=== PATIENT | female | born 1965 | race Two or more races ===

== ENCOUNTER 2021-10-12 19:01 | Inpatient (IN) | payer MEDICARE, OTHER ==
[~2021-10-12] VITALS: Ht 154.9 cm; Wt 73.5 kg
--- NOTE | 2021-10-12 19:21 | NUR ---
PT AOX4. [facility] C/O CP X2 DAYS. NO ACUTE DISTRESS NOTED. RR EVEN AND UNLABORED. PLACED ON LAPPING MACHINE OPERATOR AND PULSE OX. AT BEDSIDE FOR EVAL. AWAITING ORDERS.
[2021-10-12 19:54] LABS: BASOPHILS # (AUTO) 0.1 K/uL (0.0-0.2); BASOPHILS % (AUTO) 0.8 % (0.0-2.0); EOSINOPHILS % (AUTO) 2.3 % (0.0-6.0); HEMATOCRIT 22 % (33-45); LYMPHOCYTES # (AUTO) 1.7 K/uL (0.8-4.8); LYMPHOCYTES % (AUTO) 13.2 % (20.0-44.0); MEAN CORPUSCULAR HGB CONC 31 g/dl (31.0-36.0); MEAN CORPUSCULAR VOLUME 93 fL (82-100); MONOCYTES # (AUTO) 0.8 K/uL (0.1-1.30); MONOCYTES % (AUTO) 5.8 % (2.0-12.0); NEUTROPHILS # (AUTO) 10.2 K/uL (1.8-8.9); NEUTROPHILS % (AUTO) 77.9 % (43.0-81.0); PLATELET COUNT (AUTO) 385 K/uL (150-450); RED BLOOD CELL COUNT(AUTO) 2.37 MIL/uL (4.0-5.2); WHITE BLOOD COUNT (AUTO) 13.1 K/uL (4.3-11.0)
[2021-10-12 19:57] LABS: CALCIUM, SERUM 8.1 mg/dL (8.5-10.1); CARBON DIOXIDE 19 mmol/L (21-32); CHLORIDE 103 mmol/L (98-107); CREATININE 5.7 mg/dL (0.6-1.3); GLUCOSE 118 mg/dL (74-106); UREA NITROGEN, BLOOD 58 mg/dL (7-18)
[2021-10-12 19:58] LABS: HEMOGLOBIN 6.8 g/dL (11.5-14.8)
[2021-10-12] MEDS ORDERED: MORPHINE SULFATE INJ 2 MG/ML DISP.SYRIN IV ONE (20:00)
[2021-10-12 20:01] LABS: SODIUM SERUM 137 mmol/L (136-145)
[2021-10-12] MEDS ORDERED: MORPHINE SULFATE INJ 2 MG/ML DISP.SYRIN ONE (20:01)
[2021-10-12 20:05] LABS: POTASSIUM 6.3 mmol/L (3.5-5.1)
[2021-10-12 21:01] LABS: BAND % (MANUAL) 1 % (0.0-5.0); LYMPHOCYTES % (MANUAL) 15 % (16-48); MONOCYTES % (MANUAL) 4 % (0-11.0); NEUTROPHILS % (MANUAL) 78 (42-76)
[2021-10-12 21:02] LABS: EOSINOPHILS % (MANUAL) 2 % (0-4)
[2021-10-12] MEDS ORDERED: DOCUSATE SODIUM 100 MG CAPSULE PO PRN (21:30)
[2021-10-12] MEDS ORDERED: INSULIN REGULAR, HUMAN 100 UNIT/ML 10 ML VIAL IV ONE (21:30)
[2021-10-12] MEDS ORDERED: DEXTROSE 50%-WATER 50 ML DISP.SYRIN IVP ONE (21:30)
[2021-10-12] MEDS ORDERED: MAG HYDROX/AL HYDROX/SIMETH 30 ML UDC PO PRN (21:30)
--- NOTE | 2021-10-12 21:32 | NUR ---
PT RESTING COMFORTABLY. NO ACUTE DISTRESS NOTED. AWARE OF PLAN OF CARE.
--- NOTE | 2021-10-12 21:44 | NUR ---
BLOOD CONSENT SIGNED BY PT. AWARE OF PLAN OF CARE.
--- NOTE | 2021-10-12 22:07 | NUR ---
REPORT GIVEN TO RN FOR JESUS. PT TRANSFERED PER ACLS PROTOCOL
--- NOTE | 2021-10-12 22:15 | NUR ---
MRSA SWAB COLLECTED AND SENT TO LAB. PATIENT'S BELONGINGS LIST DONE.
--- NOTE | 2021-10-12 22:25 | NUR ---
2225 ADMITTED FROM ER 56 YEAR OLD FEMALE VIA [facility] WITH DX OF CHEST PAIN. PATIENT IS AWAKE AND VERBALLY RESPONSIVE. NO C/O CHEST PAIN WHEN ASKED. TRANSFERRED TO BED AND CONNECTED TO LEVEL VIAL INSPECTOR. NSR ON THE MONITOR. ON O2 AT 3 LITER PER REPORT. SKIN ASSESSMENT AND ADMISSION CARE RENDERED. NOTED WITH COLOSTOMY ON RIGHT UPPER QUADRANT. SMALL AMOUNT OF SEMI FORMED STOOL NOTED. UMBILICAL DRESSING REMOVED AND ASSESSED AREA, PER PATIENT SITE IS WITH LEAKING . CLEANSED AREA WITH NS AND CLEAN DRESSING APPLIED. RIGHT CHEST WALL HD CATH WITH INTACT DRESSING. LEFT AV FISTULA NOTED. KEPT CLEAN AND DRY. CALL LIGHT PLACED WITHIN REACH AND INSTRUCTED TO CALL FOR ASSISTANCE.
--- NOTE | 2021-10-12 22:26 | NUR ---
PT TRANSPORTED TO ROOM 117 ON MANAGER MEDICAL PER ACLS
[2021-10-12 22:30] VITALS: BP 122/47
[2021-10-12] MEDS: SIMVASTATIN 20 MG TABLET PO SCH (23:13)
[2021-10-13] VITALS (8 sets, daily range): BP systolic 132–155; BP diastolic 50–65
[2021-10-13] MEDS ORDERED: FUROSEMIDE 40 MG/4 ML VIAL IV ONE
[2021-10-13] MEDS: MORPHINE SULFATE INJ 2 MG/ML DISP.SYRIN IV PRN ×5 (00:07→20:20)
[2021-10-13] MEDS: methylPREDNISolone SOD SUCC 40 MG/ML VIAL IV SCH ×3 (01:46→21:37)
[2021-10-13] MEDS: ALBUTEROL FS 2.5 MG/0.5 ML VIAL.NEB NEB SCH ×5 (03:11→20:08)
[2021-10-13] MEDS: IPRATROPIUM NEB FS 0.5 MG/2.5 ML AMPUL.NEB NEB SCH ×5 (03:11→20:07)
--- NOTE | 2021-10-13 07:30 | NUR ---
RN OPENING NOTE RECEIVED PATIENT SLEEPING IN BED. BREATHING EVEN AND UNLABORED. PATIENT ON 3LPM O2 VIA NC NO S/S OF DISTRESS OR SOB NOTED. ON TELE MONITORING READING SINUS RHYTHM, HR: 85 NOTED WITH CHAI MIDLINE AND RIGHT AC #18G , INTACT AND PATENT. RUQ COLOSTOMY BAG INTACT. ALL SAFETY MEASURES IMPLEMENTED: HOB ELEVATED, CALL LIGHT WITHIN REACH, SIDE RAILS UP X 2, BED LOCKED IN LOWEST POSITION, BED ALARM ON. WILL CONTINUE TO MONITOR AND ASSESS FOR ANY CHANGES DURING SHIFT.
--- NOTE | 2021-10-13 07:47 | NUR ---
MBA INTERNS[employer]IP CLOSING NOTE PATIENT SLEEPING IN BED, ALERT/ORIENTED X 4, PT ABLE TO MAKE NEEDS KNOWN. PT STABLE ON 3 LPM OF OXYGEN VIA NASAL CANNULA, NO S/S OF DISTRESS OR SOB NOTED, BREATHING EVEN AND UNLABORED. PT ON TELE MONITORING READING SINUS RHYTHM, HR: 77. CHAI MIDLINE AND RIGHT AC #18G IV ACCESS INTACT AND SALINE LOCKED. PATIENT RECEIVED 1 UNIT OF PRBC THIS SHIFT. MEDICATIONS GIVEN ORDERED, PT NEEDS MET THROUGHOUT SHIFT. RUQ COLOSTOMY BAG INTACT. SAFETY MEASURES IN PLACE: CALL LIGHT WITHIN REACH, SIDE RAILS UP X 2, BED LOCKED IN LOWEST POSITION, BED ALARM ON. ENDORSED TO DAY SHIFT NURSE FOR CONTINUITY OF CARE
[2021-10-13] MEDS ORDERED: MULT-447 PO (07:59)
[2021-10-13] MEDS ORDERED: SEVE0.8P3 PO (07:59)
[2021-10-13] MEDS ORDERED: MELA5TAB PO (07:59)
[2021-10-13] MEDS ORDERED: HYDR-4076 PO (07:59)
[2021-10-13] MEDS ORDERED: DOCU-141 PO (07:59)
[2021-10-13] MEDS ORDERED: NALO0.4D4 IV (07:59)
[2021-10-13] MEDS ORDERED: FLUC100T PO (07:59)
[2021-10-13] MEDS ORDERED: INSU100V7 SQ (07:59)
[2021-10-13] MEDS ORDERED: FERR325T23 PO (07:59)
[2021-10-13] MEDS ORDERED: PANT40TA2 PO (07:59)
[2021-10-13] MEDS ORDERED: AMLO-213 PO (07:59)
[2021-10-13] MEDS ORDERED: CRAN3875 PO (07:59)
[2021-10-13] MEDS ORDERED: DICL100G34 TP (07:59)
[2021-10-13] MEDS ORDERED: ACET-2605 PO ×2 (07:59)
[2021-10-13] MEDS ORDERED: CRAN425C6 PO (07:59)
[2021-10-13] MEDS ORDERED: ZINC50TA69 PO (07:59)
[2021-10-13] MEDS ORDERED: LACT1CAP71 PO (07:59)
[2021-10-13] MEDS ORDERED: MAGN400O6 PO (07:59)
[2021-10-13] MEDS ORDERED: INSU100V42 SQ ×2 (07:59)
[2021-10-13] MEDS ORDERED: AMIN30LI2 PO (07:59)
[2021-10-13] MEDS ORDERED: ASPI-1420 PO (07:59)
[2021-10-13] MEDS ORDERED: INSU100I45 SQ (07:59)
[2021-10-13] MEDS ORDERED: LINA5TAB PO (07:59)
[2021-10-13] MEDS ORDERED: HYDR4TAB57 PO (07:59)
[2021-10-13] MEDS ORDERED: CALC1TAB30 PO (07:59)
[2021-10-13] MEDS ORDERED: NITR0.4T48 SL (07:59)
[2021-10-13] MEDS ORDERED: ASCO-352 PO (07:59)
[2021-10-13] MEDS ORDERED: HEPA50007 SQ (07:59)
[2021-10-13] MEDS ORDERED: ONDA4TAB5 PO (07:59)
[2021-10-13] MEDS ORDERED: METO25TA20 PO (07:59)
[2021-10-13] MEDS ORDERED: ATOR40TA PO (07:59)
[2021-10-13] MEDS ORDERED: PRED2.5T PO (07:59)
[2021-10-13] MEDS ORDERED: GLUC1KIT IM (07:59)
[2021-10-13] MEDS ORDERED: HYDR-4303 PO (07:59)
[2021-10-13] MEDS ORDERED: FOLI0.8T2 PO (07:59)
[2021-10-13] MEDS: ASPIRIN 81 MG TAB.CHEW PO SCH (08:33)
[2021-10-13 09:23] LABS: BASOPHILS % (AUTO) 0.3 % (0.0-2.0); HEMATOCRIT 26 % (33-45); HEMOGLOBIN 8.2 g/dL (11.5-14.8); LYMPHOCYTES # (AUTO) 0.2 K/uL (0.8-4.8); LYMPHOCYTES % (AUTO) 1.7 % (20.0-44.0); MEAN CORPUSCULAR HGB CONC 31 g/dl (31.0-36.0); MEAN CORPUSCULAR VOLUME 89 fL (82-100); MONOCYTES # (AUTO) 0.6 K/uL (0.1-1.30); MONOCYTES % (AUTO) 5.2 % (2.0-12.0); NEUTROPHILS # (AUTO) 10.9 K/uL (1.8-8.9); NEUTROPHILS % (AUTO) 92.8 % (43.0-81.0); PLATELET COUNT (AUTO) 428 K/uL (150-450); RED BLOOD CELL COUNT(AUTO) 2.96 MIL/uL (4.0-5.2); WHITE BLOOD COUNT (AUTO) 11.7 K/uL (4.3-11.0)
[2021-10-13 09:49] LABS: BILIRUBIN,TOTAL 0.7 mg/dL (0.2-1.0); CALCIUM, SERUM 8.5 mg/dL (8.5-10.1); CREATININE 6.5 mg/dL (0.6-1.3); MAGNESIUM 2.2 mg/dL (1.8-2.4); TOTAL PROTEIN, SERUM 7.6 g/dL (6.4-8.2)
[2021-10-13 10:10] LABS: PHOSPHORUS 8.8 mg/dL (2.5-4.9); POTASSIUM 7.6 mmol/L (3.5-5.1)
[2021-10-13] MEDS ORDERED: SEVELAMER CARBONATE 800 MG TABLET PO SCH (11:00)
[2021-10-13 11:46] LABS: THYROID STIMULATING HORMONE 0.739 uIU/mL (0.358-3.74)
[2021-10-13] MEDS ORDERED: ALTEPLASE CATHFLO 2 MG/VIAL IV ONE (12:00)
[2021-10-13] MEDS: ACETAMINOPHEN 325 MG TABLET PO PRN (13:07)
[2021-10-13] MEDS: SEVELAMER CARBONATE 800 MG POWD.PACK PO SCH ×2 (13:08→17:24)
[2021-10-13] MEDS ORDERED: HEPARIN-LOCK FLUSH PORCINE PF 100 UNITS/1 ML (10 ML)DISP.SYRIN IVF SCH (14:00)
[2021-10-13] MEDS ORDERED: hydrALAZINE HCL IV 20 MG VIAL IV PRN (16:00)
[2021-10-13 17:39] LABS: LYMPHOCYTES % (MANUAL) 2 % (16-48); NEUTROPHILS % (MANUAL) 95 (42-76)
[2021-10-13 17:40] LABS: MONOCYTES % (MANUAL) 3 % (0-11.0)
--- NOTE | 2021-10-13 18:58 | NUR ---
RN CLOSING NOTE NO SIGNIFICANT CHANGES THROUGHOUT SHIFT, PATIENT REMAINS IN STABLE CONDITION. PATIENT IS AWAKE, ALERT/ORIENTED X4, ABLE TO MAKE NEEDS KNOWN. BREATHING EVEN AND UNLABORED. PATIENT ON 3LPM O2 VIA NC NO S/S OF DISTRESS OR SOB NOTED. NOTED WITH CHAI MIDLINE AND RIGHT AC #18G , INTACT AND PATENT, FLUSHED WELL WITH NO SIGNS OF INFILTRATION. . RUQ COLOSTOMY BAG INTACT. ALL DUE MEDS GIVEN ORDERED. ALL NEEDS ANTICIPATED. KEPT PATIENT CLEAN DRY AND COMFORTABLE. ALL SAFETY MEASURES IMPLEMENTED: HOB ELEVATED, CALL LIGHT WITHIN REACH, SIDE RAILS UP X 2, BED LOCKED IN LOWEST POSITION, BED ALARM ON. WILL ENDORSE TO ONCOMING NURSE FOR CONTINUITY OF CARE.
--- NOTE | 2021-10-13 20:30 | NUR ---
cellar pumper Opening Note Pt received in bed awake, A&O x4, calm, cooperative. Pt on 3L NC O2sat 97%; no s/s of resp distress, no complaint of chest pain or SOB at the moment, non-labored breathing; appears comfortable. Pt attached to external monitor; ST with HR 101. Colostomy appears pink and moist. CHAI midline and RAC 18G are intact and patent; no s/s of infiltration, flushes well. Bed in lowest position, call light within reach, side rails up x3. Will monitor throughout the night.
--- NOTE | 2021-10-13 20:37 | NUR ---
RN Note Pt reports of 9/10 pain on right knee that's described as "it's breaking in half". Pt given Morphine 2 mg PRN for severe pain. Will reassess pt's pain in 30 minutes and monitor for its effectiveness.
[2021-10-13] MEDS: SIMVASTATIN 20 MG TABLET PO SCH (21:37)
--- NOTE | 2021-10-13 21:56 | NUR ---
RN Note Received critical from lab. Pt is gram positive cocci in clusters. Cinthya INGRAM notified and ordered vancomycin [id number]. Order obtained and carried out.
[2021-10-14] VITALS: BP 123/41
[2021-10-14] MEDS ORDERED: VANCOMYCIN 1 GM in IV D5W 250ml IV ONE (00:30)
[2021-10-14] MEDS: MORPHINE SULFATE INJ 2 MG/ML DISP.SYRIN IV PRN ×6 (01:10→23:36)
--- NOTE | 2021-10-14 01:10 | NUR ---
RN Note Pt complains of 9/10 pain on right knee that's described as sharp. Pt requests for pain med. Pt given Morphine 2 mg IV PRN q4h severe pain. Will reassess for effectiveness.
[2021-10-14] MEDS ORDERED: VANCOMYCIN 1 GM VIAL ONE (01:19)
[2021-10-14 04:00] VITALS: BP 151/52
--- NOTE | 2021-10-14 05:57 | NUR ---
RN Note Pt complains of 9/10 pain on right knee that's described as sharp. Pt requests for pain med. Pt given morphine 2 mg IV PRN. Pt states her pain gets as low as a 4/10 when morphine is given. Will reassess for effectiveness.
--- NOTE | 2021-10-14 05:59 | NUR ---
facility security officer Closing Note Pt in bed awake, A&O x4; pt reports of not being able to sleep much at night. Continues to be on 3L NC, O2sat ranged from 94%-98% throughout the night. Pt attached to external monitor, sinus tachycardia later in the night with HR as high as 103 and SR towards the end of shift with HR 87. Pt has had no complaint of SOB or chest pain throughout the night; non-labored breathing, no s/s of resp distress. Vanco infused throughout the night at 250 ml/hr. CHAI midline and RAC IV intact and patent, no s/s of infiltration. Bed in lowest position, call light within reach, side rails up x3. Will endorse to dayshift nurse to continue care.
--- NOTE | 2021-10-14 07:25 | NUR ---
RN OPENING NOTE RECEIVED PATIENT AWAKE. PATIENT IS ALERT/ORIENTED X 4, ABLE TO MAKE NEEDS KNOWN. BREATHING EVEN AND UNLABORED. PATIENT ON 3LPM O2 VIA NC NO S/S OF DISTRESS OR SOB NOTED. PATIENT DENIES ANY CHEST PAIN/DISCOMFORT AT THE TIME. ON TELE MONITORING READING SINUS RHYTHM WITH HR OF 87. NOTED WITH CHAI MIDLINE AND RIGHT AC #18G , INTACT AND PATENT. RUQ COLOSTOMY BAG INTACT. ALL SAFETY MEASURES IMPLEMENTED: HOB ELEVATED, CALL LIGHT WITHIN REACH, SIDE RAILS UP X 2, BED LOCKED IN LOWEST POSITION, BED ALARM ON. WILL CONTINUE TO MONITOR AND ASSESS FOR ANY CHANGES DURING SHIFT.
[2021-10-14 08:00] VITALS: BP 139/46
[2021-10-14] MEDS ORDERED: VANCOMYCIN 500 MG in IV D5W 100 ML IV PRN (08:00)
[2021-10-14] MEDS: SEVELAMER CARBONATE 800 MG POWD.PACK PO SCH ×3 (08:14→17:14)
[2021-10-14] MEDS: ASPIRIN 81 MG TAB.CHEW PO SCH (08:15)
[2021-10-14] MEDS: methylPREDNISolone SOD SUCC 40 MG/ML VIAL IV SCH (08:15)
[2021-10-14] MEDS: IPRATROPIUM NEB FS 0.5 MG/2.5 ML AMPUL.NEB NEB SCH ×4 (09:08→20:18)
[2021-10-14] MEDS: ALBUTEROL FS 2.5 MG/0.5 ML VIAL.NEB NEB SCH ×4 (09:09→20:18)
[2021-10-14 10:02] LABS: BASOPHILS # (AUTO) 0.1 K/uL (0.0-0.2); BASOPHILS % (AUTO) 0.6 % (0.0-2.0); EOSINOPHILS % (AUTO) 0.3 % (0.0-6.0); HEMATOCRIT 24 % (33-45); HEMOGLOBIN 7.8 g/dL (11.5-14.8); LYMPHOCYTES # (AUTO) 1.8 K/uL (0.8-4.8); LYMPHOCYTES % (AUTO) 18.2 % (20.0-44.0); MEAN CORPUSCULAR HGB CONC 33 g/dl (31.0-36.0); MEAN CORPUSCULAR VOLUME 87 fL (82-100); MONOCYTES # (AUTO) 0.6 K/uL (0.1-1.30); MONOCYTES % (AUTO) 6.6 % (2.0-12.0); NEUTROPHILS # (AUTO) 7.2 K/uL (1.8-8.9); NEUTROPHILS % (AUTO) 74.3 % (43.0-81.0); PLATELET COUNT (AUTO) 405 K/uL (150-450); RED BLOOD CELL COUNT(AUTO) 2.73 MIL/uL (4.0-5.2); WHITE BLOOD COUNT (AUTO) 9.7 K/uL (4.3-11.0)
[2021-10-14 10:42] LABS: CALCIUM, SERUM 7.9 mg/dL (8.5-10.1); CREATININE 4.3 mg/dL (0.6-1.3); POTASSIUM 4.4 mmol/L (3.5-5.1)
[2021-10-14 12:00] VITALS: BP 137/44
[2021-10-14] MEDS ORDERED: SEVELAMER CARBONATE 800 MG TABLET PO SCH (13:00)
[2021-10-14 14:54] LABS: MAGNESIUM 2.3 mg/dL (1.8-2.4)
[2021-10-14 16:00] VITALS: BP 130/41
[2021-10-14] MEDS: SOD FERRIC GLUC 125 MG in IV NS 0.9% 100 ML IV SCH (16:03)
--- NOTE | 2021-10-14 17:10 | NUR ---
RN NOTE ACCU-CHECK DONE, BLOOD SUGAR RESULT WAS 520 MG/DL. DR. MORA MADE AWARE, WITH ORDER TO GIVE 15 UNITS OF REGULAR INSULIN SQ, ORDERS NOTED AND CARRIED OUT. PATIENT IS AWAKE, ALERT/ORIENTED X 3 AND VERBALLY RESPONSIVE, ASYMPTOMATIC FOR HYPERGLYCEMIA. ALL NEEDS ANTICIPATED.
[2021-10-14] MEDS ORDERED: *INSULIN REGULAR(HUMULIN R)HUM 100 UNIT/ML VIAL SQ PRN (17:30)
[2021-10-14] MEDS ORDERED: INSULIN REGULAR, HUMAN 100 UNIT/ML 3 ML VIAL SQ PRN (17:30)
[2021-10-14] MEDS ORDERED: DEXTROSE 50%-WATER 50 ML DISP.SYRIN IV PRN (17:30)
[2021-10-14] MEDS ORDERED: BLOOD SUGAR DIAGNOSTIC 1 EACH STRIP IN SCH (17:30)
[2021-10-14] MEDS ORDERED: DICLOFENAC TOPICAL 100 GM GEL..GM. TP PRN (17:30)
[2021-10-14] MEDS ORDERED: NITROGLYCERIN 0.4 MG/TAB BOTTLE SL PRN (17:30)
[2021-10-14] MEDS: INSULIN REGULAR, HUMAN 100 UNIT/ML 3 ML VIAL SQ PRN ×2 (17:42→18:12)
[2021-10-14] MEDS ORDERED: SEVELAMER CARBONATE 800 MG POWD.PACK PO SCH (18:00)
[2021-10-14] MEDS ORDERED: INSULIN ASPART 12 UNIT SQ SCH (18:00)
--- NOTE | 2021-10-14 18:07 | NUR ---
ADDENDUM PATIENT RANDOM GLUCOSE PER LAB 610 ANOTHER 15 UNITS GIVEN IN ADDITION TO 15 UNITS EARLY DOSE, ORDERED.PT. AWAKE ALERT,DENEIS ANY PAIN MD AWARE.
[2021-10-14] MEDS: BLOOD SUGAR DIAGNOSTIC 1 EACH STRIP VI SCH ×2 (18:12→22:00)
--- NOTE | 2021-10-14 19:10 | NUR ---
RN CLOSING NOTE PATIENT REMAINS IN STABLE CONDITION THROUGHOUT SHIFT. PATIENT IN BED RESTING. PATIENT IS ALERT/ORIENTED X 4, ABLE TO MAKE NEEDS KNOWN. BREATHING EVEN AND UNLABORED. PATIENT ON 3LPM O2 VIA NC NO S/S OF DISTRESS OR SOB NOTED. NOTED WITH CHAI MIDLINE AND RIGHT AC #18G , INTACT AND PATENT. RUQ COLOSTOMY BAG INTACT. ALL DUE MEDS GIVEN ORDERED. KEPT PATIENT CLEAN DRY AND COMFORTABLE. ALL NEEDS ANTICIPATED. ALL SAFETY MEASURES IMPLEMENTED: HOB ELEVATED, CALL LIGHT WITHIN REACH, SIDE RAILS UP X 2, BED LOCKED IN LOWEST POSITION, BED ALARM ON. WILL ENDORSE TO ONCOMING NURSE FOR CONTINUITY OF CARE.
--- NOTE | 2021-10-14 19:30 | NUR ---
RN OPENING NOTE RECEIVED CARE OF PATIENT WHILE PATIENT IN BED, A/O X4, ABLE TO MAKE NEEDS KNOWN. PATIENT EXPRESSES PAIN 10/10, MORPHINE PRN Q4H GIVEN BY AM NURSE, WILL CONTINUE TO ASSESS PAIN LEVEL. PATIENT ON 3LPM O2 VIA NC NO S/S OF DISTRESS OR SOB NOTED. NOTED WITH CHAI MIDLINE AND RIGHT AC #18G , INTACT AND PATENT. RUQ COLOSTOMY BAG INTACT. ALL SAFETY MEASURES IMPLEMENTED: HOB ELEVATED, CALL LIGHT WITHIN REACH, SIDE RAILS UP X 2, BED LOCKED IN LOWEST POSITION, BED ALARM ON. WILL CONTINUE TO MONITOR.
[2021-10-14 20:00] VITALS: BP 141/66
--- NOTE | 2021-10-14 20:18 | NUR ---
RT PT RECVD AWAKE AND VERBAL ON 2 LPM NC, TX GIVEN AND PT TOLERATING WELL. NO SOB OR RESPIRATORY DISTRESS NOTED AT THIS TIME.
[2021-10-14] MEDS: DOCUSATE SODIUM 100 MG CAPSULE PO SCH (21:22)
[2021-10-14] MEDS: hydrALAZINE HCL 25 MG TABLET PO SCH (21:22)
[2021-10-14] MEDS: SIMVASTATIN 20 MG TABLET PO SCH (21:23)
[2021-10-14] MEDS: ATORVASTATIN 40 MG TABLET PO SCH (21:23)
[2021-10-14] MEDS: HEPARIN SODIUM, PORCINE 5000 UNITS/1 ML VIAL SQ SCH (21:26)
[2021-10-14] MEDS ORDERED: Medication Not On Formulary EA (Melatonin 5 MG) PO SCH (22:00)
[2021-10-14] MEDS: INSULIN GLARGINE, 100 UNIT/ML CARTRIDGE SQ SCH (23:02)
[2021-10-14] MEDS: *INSULIN REGULAR(HUMULIN R)HUM 100 UNIT/ML VIAL SQ PRN (23:04)
[2021-10-15] VITALS: BP 138/57
[2021-10-15 04:00] VITALS: BP 143/68
[2021-10-15] MEDS: MORPHINE SULFATE INJ 2 MG/ML DISP.SYRIN IV PRN ×4 (04:00→20:50)
[2021-10-15] MEDS: hydrALAZINE HCL 25 MG TABLET PO SCH ×3 (05:17→21:24)
--- NOTE | 2021-10-15 06:32 | NUR ---
RN NOTES WILL ENDORSE CARE OF PATIENT TO AM NURSE WHILE PATIENT IN BED, ASLEEP, WAKES UP TO NAME. PATIENT IS A/O X4, ABLE TO MAKE NEEDS KNOWN. PATIENT IN NO DISCOMFORT AT THIS TIME. ALL PATIENT NEEDS MET THROUGHOUT SHIFT. ALL DUE MEDS GIVEN. NO SIGNIFICANT FINDINGS UPON ALL NURSING ASSESSMENTS. ALL SAFETY PRECAUTIONS IMPLEMENTED PER HOSPITAL PROTOCOLS. WILL ENDORSE TO AM NURSE FOR CONTINUITY OF CARE.
[2021-10-15 06:40] LABS: BASOPHILS % (AUTO) 0.3 % (0.0-2.0); EOSINOPHILS % (AUTO) 0.3 % (0.0-6.0); HEMATOCRIT 23 % (33-45); HEMOGLOBIN 7.4 g/dL (11.5-14.8); LYMPHOCYTES # (AUTO) 1.6 K/uL (0.8-4.8); LYMPHOCYTES % (AUTO) 14.4 % (20.0-44.0); MEAN CORPUSCULAR HGB CONC 32 g/dl (31.0-36.0); MEAN CORPUSCULAR VOLUME 86 fL (82-100); MONOCYTES # (AUTO) 0.9 K/uL (0.1-1.30); MONOCYTES % (AUTO) 7.7 % (2.0-12.0); NEUTROPHILS # (AUTO) 8.8 K/uL (1.8-8.9); NEUTROPHILS % (AUTO) 77.3 % (43.0-81.0); PLATELET COUNT (AUTO) 383 K/uL (150-450); WHITE BLOOD COUNT (AUTO) 11.3 K/uL (4.3-11.0)
[2021-10-15 07:17] LABS: CALCIUM, SERUM 8.2 mg/dL (8.5-10.1); CREATININE 5.3 mg/dL (0.6-1.3); MAGNESIUM 2.2 mg/dL (1.8-2.4); PHOSPHORUS 7.1 mg/dL (2.5-4.9); POTASSIUM 4.6 mmol/L (3.5-5.1)
[2021-10-15] MEDS: PANTOPRAZOLE 40 MG TABLET.DR PO SCH (07:30)
--- NOTE | 2021-10-15 07:30 | NUR ---
RN NOTES RECEIVED PATIENT IN BED, ASLEEP, EASY TO AROUSE, PATIENT A/O X4, ABLE TO MAKE NEEDS KNOWN AND EXPRESS SELF, NO SOB, NO LABORED BREATHING, NO DISCOMFORT AT THIS TIME. I IV MIDLINE INTACT, BRACHIAL IV RIGHT SIDE LEAKING D/C SITE CLEANSED NO SIGNIFCANT BLEEDING NOTED, GAUZE APPLIED NO IRRITATION NO INFECTION NOTED, ALL SAFETY PRECAUTIONS IMPLEMENTED PER HOSPITAL PROTOCOLS WITH BED LOW TO FLOOR, WHEELS LOCKED , CALL LIGHT IN REACH.
[2021-10-15] MEDS: SEVELAMER CARBONATE 800 MG POWD.PACK PO SCH (07:57)
[2021-10-15] MEDS: ASPIRIN 81 MG TAB.CHEW PO SCH (07:58)
[2021-10-15 08:00] VITALS: BP 134/39
[2021-10-15] MEDS: HEPARIN SODIUM, PORCINE 5000 UNITS/1 ML VIAL SQ SCH ×2 (08:04→21:25)
[2021-10-15] MEDS: ALBUTEROL FS 2.5 MG/0.5 ML VIAL.NEB NEB SCH ×4 (08:18→19:30)
[2021-10-15] MEDS: IPRATROPIUM NEB FS 0.5 MG/2.5 ML AMPUL.NEB NEB SCH ×4 (08:18→19:30)
[2021-10-15] MEDS: BLOOD SUGAR DIAGNOSTIC 1 EACH STRIP VI SCH ×4 (08:24→21:54)
[2021-10-15] MEDS: FERROUS SULFATE (325 MG) 325 MG/TAB TABLET PO SCH (08:34)
[2021-10-15] MEDS: ASPIRIN EC 81 MG TABLET.DR PO SCH (08:34)
[2021-10-15] MEDS: METOPROLOL TARTRATE 25 MG TABLET PO SCH ×2 (08:35→19:19)
[2021-10-15] MEDS: LINAGLIPTIN 5 MG TABLET PO SCH (08:35)
[2021-10-15] MEDS: AMLODIPINE BESYLATE 10 MG TABLET PO SCH (08:36)
[2021-10-15] MEDS ORDERED: EPOETIN ALFA (10,000 UNIT) 10,000 UNIT/ML VIAL IV ONE (09:00)
--- NOTE | 2021-10-15 10:00 | NUR ---
MORPHINE GIVEN TO PATIENT, REASSESSED PAIN LEVEL IT WAS AT A 10 ON A SCALE OF 0-10 WHEN GIVEN IT IS AT A 2 AT 1017 AM , REPOSITIONED , DIMMED LIGHTS AND MADE PT FEEL MORE COMFORTABLE BY PROVIDING EDUCTION AND VISUAL BREATHING EXERCISES TO HELP RELIEVE THE PAIN EFFECTIVE THEN STATED PAIN = ZERO AFTER SOME DEEP BREATHING AND VISUALIZATION OF RELAXING THOUGHTS WITH GUIDED MEDITATION. WILL CONTINUE TO MONITOR.
[2021-10-15 12:00] VITALS: BP 139/42
--- NOTE | 2021-10-15 14:18 | NUR ---
RN NOTES PT HAS ORDER FOR CT ANGIO - TODAY, I WAS NOT AWARE THAT THE DIALYSIS NEEDED TO BE AFTER THE CT PROCEDURE WITHIN 24 HOURS OR LESS AND DIALYSIS IS BEING PERFORMED NOW, THEREFORE THE CT IS NOW RESCHEDULED FOR 10/16/21, MD MORA AWARE VIA TEXT MESSAGE, DIALYSIS IS SET UP AND AWARE TO PERFORM DIALYSIS TREATMENT WITHIN 24 HOURS OR LESS FROM TIME OF CT PROCEDURE, WILL RELAY THIS INFO TO ONCOMING RN SUPER VISOR AT END OF SHIFT AND TO ONCOMING TRANSPORTATION DESIGN ENGINEER NURSE WELL, BOTH PROCEDURES ARE SCHEDULED AT THIS TIME AND AWARE OF IMPORTANCE.
[2021-10-15] MEDS: SOD FERRIC GLUC 125 MG in IV NS 0.9% 100 ML IV SCH (14:39)
[2021-10-15] MEDS ORDERED: EPOETIN ALFA-EPBX 10,000 UNIT/ML VIAL IV ONE (15:00)
[2021-10-15 16:00] VITALS: BP 127/53
[2021-10-15] MEDS: SEVELAMER CARBONATE 800 MG TABLET PO SCH ×2 (16:24→19:18)
--- NOTE | 2021-10-15 19:40 | NUR ---
RN NOTES PATIENT HAS COLOSTOMY BAG-IN PLACE, WILL CONTYINUE TO MONITOR
--- NOTE | 2021-10-15 19:40 | NUR ---
RN NOTES RECEIVED PATIENT AWAKE ON BED, A/OX4, SR ON TELE MONITOR, DENIES PAIN AT THIS TIME, BED IN LOCKED POSITION,NO SOB,CALL LIGHT WITHIN REACH, SIDERAILSUPX2, WILL CONTINUE TO MONITOR
--- NOTE | 2021-10-15 19:50 | NUR ---
RN CLOSING NOTES PT BS = 190, COLOSTOMY BAG CHANGED, IV SITE INTACT PATENT FLUSHING NO INFILRATION AND NO IRRITATION NOTED, PT REPOSITIONED FOR COMFORT, THE CT ANGIO WILL BE DONE TOMORROW 10/16/21 AND DIALYSIS AWARE TO PERFORM DIALYSIS WITHIN A 24 HOUR TIME AFTER THE PROCEDURE DIALYSIS TEAM NOTIFIED AND PT IS ON SCHEDULE TO RECEIVE DIALYSIS TOMORROW WITH IN A 24 TIME OR LESS PER ORDERS. ALL NEEDS MET WHEELS LOCKED, BED LOW TO FLOOR, LIGHTS DIM FOR COMFORT CALL LIGHT IN REACH. ENDORSED CT INFORMATION AND DIALYSIS INFO TO ONCOMING SHIFT RN.
[2021-10-15 20:00] VITALS: BP 150/53
--- NOTE | 2021-10-15 20:17 | NUR ---
RT PT REFUSED TX AT THIS TIME. SPO2 99% ON 3 LPM NC. GAVIOTA XIONG INFORMED.
--- NOTE | 2021-10-15 20:54 | NUR ---
RN NOTES COMPLAINED OF SEVERE PAIN ON HER LEGS AND HER ARMS- MORPHINE 2 MG IV GIVEN ORDERED, V/S STABLE
[2021-10-15] MEDS: SIMVASTATIN 20 MG TABLET PO SCH (21:27)
[2021-10-15] MEDS: ATORVASTATIN 40 MG TABLET PO SCH (21:27)
[2021-10-15] MEDS: DOCUSATE SODIUM 100 MG CAPSULE PO SCH (21:27)
[2021-10-15] MEDS: INSULIN GLARGINE, 100 UNIT/ML CARTRIDGE SQ SCH (21:51)
[2021-10-15] MEDS: *INSULIN REGULAR(HUMULIN R)HUM 100 UNIT/ML VIAL SQ PRN (21:52)
[2021-10-16] VITALS: BP 140/41
[2021-10-16] MEDS: MORPHINE SULFATE INJ 2 MG/ML DISP.SYRIN IV PRN ×4 (00:59→16:52)
--- NOTE | 2021-10-16 01:07 | NUR ---
RN NOTES COMPLAIKNED OF TEERIBLE PAIN ON HER KNEES- MORPHINE 2 MG IV GIVEN ORDERED, V/S STABLE
[2021-10-16 04:00] VITALS: BP 135/63
--- NOTE | 2021-10-16 04:52 | NUR ---
RN NOTES complained of bilateral knee pain- morphine 2 mg iv given as ordered, v/s stable
[2021-10-16] MEDS: hydrALAZINE HCL 25 MG TABLET PO SCH ×3 (05:31→22:19)
--- NOTE | 2021-10-16 06:35 | NUR ---
RN NOTES SLEEPING UT AROUSABLE, MORNING CARE RENDERED, DENIES PAIN AT THIS TIME, NO SOB, DALL LIGHT WITHIN REACH, SIDERAILSUPX2, PT. NEEDS ATTENDED
[2021-10-16] MEDS: BLOOD SUGAR DIAGNOSTIC 1 EACH STRIP VI SCH ×4 (07:29→22:24)
[2021-10-16] MEDS: PANTOPRAZOLE 40 MG TABLET.DR PO SCH (07:32)
--- NOTE | 2021-10-16 07:40 | NUR ---
RN NOTE RECEIVE PATIENT IN BED RESTING ALERT ORIENTED X4 VERBALLY RESPONSIVE ON 2L OXYGEN O2:98% SAFETY MEASURE IMPLEMENT BED IN LOW POSITION AND LOCKED CONTINUE TO MONITOR.
[2021-10-16] MEDS: SEVELAMER CARBONATE 800 MG TABLET PO SCH ×3 (07:47→18:06)
[2021-10-16] MEDS: IPRATROPIUM NEB FS 0.5 MG/2.5 ML AMPUL.NEB NEB SCH ×4 (07:56→19:30)
[2021-10-16] MEDS: ALBUTEROL FS 2.5 MG/0.5 ML VIAL.NEB NEB SCH ×4 (07:56→19:30)
[2021-10-16 08:00] VITALS: BP 138/41
[2021-10-16] MEDS: ASPIRIN EC 81 MG TABLET.DR PO SCH (09:00)
[2021-10-16] MEDS: HEPARIN SODIUM, PORCINE 5000 UNITS/1 ML VIAL SQ SCH ×2 (09:00→22:20)
[2021-10-16] MEDS: ASPIRIN 81 MG TAB.CHEW PO SCH (09:00)
[2021-10-16] MEDS: AMLODIPINE BESYLATE 10 MG TABLET PO SCH (09:00)
[2021-10-16] MEDS: LINAGLIPTIN 5 MG TABLET PO SCH (09:00)
[2021-10-16] MEDS: METOPROLOL TARTRATE 25 MG TABLET PO SCH ×2 (09:00→17:15)
[2021-10-16] MEDS: FERROUS SULFATE (325 MG) 325 MG/TAB TABLET PO SCH (09:00)
--- NOTE | 2021-10-16 09:00 | NUR ---
RN NOTE PATIENT WENT TO CT ANGIO AT THIS TIME,HELD ALL MEDS FOR MORNING AT 0900.
[2021-10-16] MEDS: METOPROLOL TARTRATE INJ 5 MG/5 ML AMPUL IVP PRN ×6 (09:17→09:42)
[2021-10-16] MEDS ORDERED: METOPROLOL TARTRATE INJ 5 MG/5 ML AMPUL ONE ×2 (09:22→09:45)
[2021-10-16] MEDS ORDERED: IOHEXOL-350 100 ML VIAL IV ONE ×2 (09:22→10:08)
[2021-10-16] MEDS ORDERED: NITROGLYCERIN 0.4 MG/TAB BOTTLE ONE (09:22)
[2021-10-16] MEDS ORDERED: CT SWABBABLE VALVE TRANS SET 1 EA INFUS.SET MC ONE (09:22)
[2021-10-16] MEDS ORDERED: IV NS 0.9% 250 ML IV ONE (09:22)
[2021-10-16] MEDS ORDERED: NITROGLYCERIN 0.4 MG/TAB BOTTLE SL PRN (09:30)
[2021-10-16] MEDS: NITROGLYCERIN 0.4 MG/TAB BOTTLE SL PRN (09:57)
--- NOTE | 2021-10-16 10:42 | NUR ---
RN NOTE PATIENT RETURN TO HER ROOM AT [address] ANGIO,CONTINUE TO MONITOR
[2021-10-16 12:00] VITALS: BP 148/46
[2021-10-16] MEDS: SOD FERRIC GLUC 125 MG in IV NS 0.9% 100 ML IV SCH (14:27)
[2021-10-16 16:00] VITALS: BP 116/43
[2021-10-16] MEDS: HEPARIN-LOCK FLUSH PORCINE PF 100 UNITS/1 ML (10 ML)DISP.SYRIN IVF PRN (17:01)
--- NOTE | 2021-10-16 19:20 | NUR ---
RN NOTE RECEIVED PATIENT IN BED, AO X 4, IN NO ACUTE DISTRESS AT THIS TIME. RESPIRATIONS UNLABORED, SATURATION AT 95% ON 3L VIA NC, SR ON THE MONITOR, HR IS 90. CHAI MIDLINE PATENT AND FLUSHING WELL, AND PERMACATH AT L UPPER CHEST INTACT, NO S/S OF INFECTION. COLOSTOMY IN PLACE, MINIMAL AMOUNT OF OUTPUT NOTED. SAFETY MEASURES IMPLEMENTED. PATIENT BED ALARM IS ON. HEAD OF BED ELEVATED. BED IS LOCKED, IN LOWEST POSITION AND SIDE RAILS UP. CALL LIGHT WITHIN REACH OF THE PATIENT. WILL CONTINUE TO MONITOR AND REASSESS FOR ANY CHANGES.
--- NOTE | 2021-10-16 19:47 | NUR ---
RN NOTE PATIENT REMAINS ON ALERT ORIENTED X4 VERBALLY RESPONSIVE DIALYSIS DONE 2L OUT,ALL DUE MEDS GIVEN MD ORDERED ENDORSE NEXT COMING SHIFT FOR CONTINUATION OF CARE.
[2021-10-16 20:00] VITALS: BP 145/82
[2021-10-16] MEDS ORDERED: VANCOMYCIN 1 GM in IV D5W 250ml IV ONE (20:00)
--- NOTE | 2021-10-16 20:17 | NUR ---
RT PT REFUSED TX. NO SOB OR RESPIRATORY DISTRESS NOTED AT THIS TIME. GAVIOTA OVIEDO INFORMED.
[2021-10-16] MEDS: ATORVASTATIN 40 MG TABLET PO SCH (22:20)
[2021-10-16] MEDS: DOCUSATE SODIUM 100 MG CAPSULE PO SCH (22:20)
[2021-10-16] MEDS: SIMVASTATIN 20 MG TABLET PO SCH (22:21)
[2021-10-16] MEDS: INSULIN GLARGINE, 100 UNIT/ML CARTRIDGE SQ SCH (22:26)
[2021-10-16] MEDS: *INSULIN REGULAR(HUMULIN R)HUM 100 UNIT/ML VIAL SQ PRN (22:27)
[2021-10-17] VITALS: BP 128/95
[2021-10-17 04:00] VITALS: BP 140/55
[2021-10-17] MEDS: hydrALAZINE HCL 25 MG TABLET PO SCH ×3 (05:06→21:02)
[2021-10-17 06:59] LABS: BASOPHILS % (AUTO) 0.2 % (0.0-2.0); EOSINOPHILS % (AUTO) 2.3 % (0.0-6.0); HEMATOCRIT 24 % (33-45); HEMOGLOBIN 7.8 g/dL (11.5-14.8); LYMPHOCYTES % (AUTO) 22.3 % (20.0-44.0); MEAN CORPUSCULAR HGB CONC 32 g/dl (31.0-36.0); MEAN CORPUSCULAR VOLUME 87 fL (82-100); MONOCYTES % (AUTO) 7.6 % (2.0-12.0); NEUTROPHILS % (AUTO) 67.6 % (43.0-81.0); PLATELET COUNT (AUTO) 373 K/uL (150-450); RED BLOOD CELL COUNT(AUTO) 2.78 MIL/uL (4.0-5.2); WHITE BLOOD COUNT (AUTO) 13.3 K/uL (4.3-11.0)
--- NOTE | 2021-10-17 07:10 | NUR ---
RN NOTE RECEIVED PATIENT IN BED RESTING ALERT ORIENTED X4 VERBALLY RESPONSIVE ON 3L OXYGEN VIA NASAL CANNULA,O2:97% IV SITE IS ON RIGHT UPPER ARM MIDLINE AND LEFT CHEST HD CATH INTACT PATENT SAFETY MEASURE IMPLEMENT,BED IN LOW POSITION AND LOCKED,CALL LIGHT WITHIN REACH CONTINUE TO MONITOR.
[2021-10-17] MEDS: BLOOD SUGAR DIAGNOSTIC 1 EACH STRIP VI SCH ×4 (07:31→21:02)
[2021-10-17] MEDS: SEVELAMER CARBONATE 800 MG TABLET PO SCH ×3 (07:34→17:50)
[2021-10-17] MEDS: PANTOPRAZOLE 40 MG TABLET.DR PO SCH (07:34)
[2021-10-17 07:37] LABS: CREATININE 3.9 mg/dL (0.6-1.3); MAGNESIUM 1.8 mg/dL (1.8-2.4); PHOSPHORUS 3.7 mg/dL (2.5-4.9); POTASSIUM 5.1 mmol/L (3.5-5.1)
[2021-10-17 08:00] VITALS: BP 158/65
[2021-10-17] MEDS: ASPIRIN EC 81 MG TABLET.DR PO SCH (08:06)
[2021-10-17] MEDS: FERROUS SULFATE (325 MG) 325 MG/TAB TABLET PO SCH (08:06)
[2021-10-17] MEDS: ASPIRIN 81 MG TAB.CHEW PO SCH (08:06)
[2021-10-17] MEDS: HEPARIN SODIUM, PORCINE 5000 UNITS/1 ML VIAL SQ SCH ×2 (08:08→21:10)
[2021-10-17] MEDS: IPRATROPIUM NEB FS 0.5 MG/2.5 ML AMPUL.NEB NEB SCH ×4 (08:21→19:30)
[2021-10-17] MEDS: ALBUTEROL FS 2.5 MG/0.5 ML VIAL.NEB NEB SCH ×4 (08:21→19:30)
[2021-10-17] MEDS: MORPHINE SULFATE INJ 2 MG/ML DISP.SYRIN IV PRN ×4 (08:30→21:52)
[2021-10-17] MEDS: METOPROLOL TARTRATE 25 MG TABLET PO SCH ×3 (08:30→17:51)
[2021-10-17] MEDS: AMLODIPINE BESYLATE 10 MG TABLET PO SCH (08:36)
[2021-10-17] MEDS: LINAGLIPTIN 5 MG TABLET PO SCH (08:37)
--- NOTE | 2021-10-17 09:00 | NUR ---
RN NOTE TRADJENDA 5MG HELD DUE TO BLOOD SUGAR IS 66 CONTINUE TO MONITOR.
--- NOTE | 2021-10-17 09:00 | NUR ---
RN NOTE HELP BLOOD PRESSURE MEDS FOR 0900 AM DUE TO PATIENT WILL GET DIALYSIS THIS MORNING CONTINUE TO MONITOR.
--- NOTE | 2021-10-17 10:32 | NUR ---
RN NOTE PATIENT COMPLAINING FROM BELLY BOTTOM SOME STUFF COMING OUT.ASSESSED THE PATIENT NOTIFIED DR FRAZIER,CONTINUE TO MONITOR.
[2021-10-17 12:00] VITALS: BP 143/53
--- NOTE | 2021-10-17 12:00 | NUR ---
RN NOTE METOPROLOL 50MG AT 12:00 NOT GIVEN PATIENT DIALYSIS,CONTINUE TO MONITOR.
[2021-10-17] MEDS: HEPARIN-LOCK FLUSH PORCINE PF 100 UNITS/1 ML (10 ML)DISP.SYRIN IVF PRN (13:37)
[2021-10-17] MEDS: SOD FERRIC GLUC 125 MG in IV NS 0.9% 100 ML IV SCH (13:57)
[2021-10-17] MEDS ORDERED: EPOETIN ALFA-EPBX 10,000 UNIT/ML VIAL IV ONE (15:00)
[2021-10-17 16:00] VITALS: BP 136/43
--- NOTE | 2021-10-17 19:30 | NUR ---
TELE/RN OPENING NOTE RECEIVED PATIENT SLEEPING IN BED. ALERT AND ORIENTED X 4. ABLE TO MAKE NEEDS KNOWN. DENIES PAIN AT THIS TIME. CONTINUES ON O2 3L VIA NC WITH NO S/SX OF RESPIRATORY DISTRESS NOTED. IV ACCESS TO RIGHT UPPER ARM MIDLINE INTACT, PATENT AND SALINE LOCKED. LEFT CHEST WALL PERMA CATH IN PLACE FOR DIALYSIS. DRESSING IS C/D/I. CONTINUES ON TELE MONITOR WITH CURRENT READING SR. CALL LIGHT WITHIN REACH. ASPIRATION, FALL AND SAFETY PRECAUTIONS MAINTAINED. ALL NEEDS ATTENDED TO AT THIS TIME.
[2021-10-17 20:00] VITALS: BP 119/59
--- NOTE | 2021-10-17 20:17 | NUR ---
RT PT REFUSED NEB TX AT THIS TIME, GAVIOTA JACOBSEN INFORMED. NO SOB OR RESPIRATORY DISTRESS AT THIS TIME.
[2021-10-17] MEDS: ATORVASTATIN 40 MG TABLET PO SCH (21:02)
[2021-10-17] MEDS: DOCUSATE SODIUM 100 MG CAPSULE PO SCH (21:02)
[2021-10-17] MEDS: SIMVASTATIN 20 MG TABLET PO SCH (21:02)
[2021-10-17] MEDS: ACETAMINOPHEN 325 MG TABLET PO PRN (21:11)
--- NOTE | 2021-10-17 21:15 | NUR ---
TELE/RN NOTE PATIENT WITH C/O GENERALIZED PAIN. NOT DUE YET FOR PRN MORPHINE. ADMINISTERED PRN TYLENOL PER MD ORDERS.
[2021-10-17] MEDS: INSULIN GLARGINE, 100 UNIT/ML CARTRIDGE SQ SCH (22:04)
[2021-10-17] MEDS: *INSULIN REGULAR(HUMULIN R)HUM 100 UNIT/ML VIAL SQ PRN (22:06)
[2021-10-18] VITALS: BP 110/48
[2021-10-18] MEDS: METOPROLOL TARTRATE 25 MG TABLET PO SCH ×5 (01:24→23:23)
[2021-10-18] MEDS: MORPHINE SULFATE INJ 2 MG/ML DISP.SYRIN IV PRN ×5 (02:31→20:41)
[2021-10-18] MEDS: DEXTROSE 50%-WATER 50 ML DISP.SYRIN IV PRN (02:36)
--- NOTE | 2021-10-18 02:42 | NUR ---
TELE/RN NOTE PATIENT CALLED RN INTO ROOM STATING SHE FEELS "SWEATY ALL OVER". TEMP TAKEN WITH RESULT OF 98.0. BLOOD SUGAR CHECKED WITH RESULT OF 41 DESPITE BEDTIME SNACKS X 2. ADMINISTERED PRN DEXTROSE VIA IVP. WILL RECHECK BLOOD SUGAR. PATIENT CURRENTLY RESTING IN BED. ALERT AND ORIENTED X 4. NO CHANGE IN LOC NOTED.
--- NOTE | 2021-10-18 03:08 | NUR ---
TELE/RN NOTE BLOOD SUGAR RECHECK IS 133. PATIENT AWAKE, RESTING IN BED. ALL NEEDS ATTENDED TO.
[2021-10-18 04:00] VITALS: BP 121/63
[2021-10-18] MEDS: hydrALAZINE HCL 25 MG TABLET PO SCH ×3 (05:20→20:42)
--- NOTE | 2021-10-18 06:30 | NUR ---
TELE/RN CLOSING NOTE PATIENT CURRENTLY SLEEPING IN BED. ALERT AND ORIENTED X 4. ABLE TO MAKE NEEDS KNOWN. DENIES PAIN AT THIS TIME. CONTINUES ON O2 3L VIA NC WITH NO S/SX OF RESPIRATORY DISTRESS NOTED. IV ACCESS TO RIGHT UPPER ARM MIDLINE INTACT, PATENT AND SALINE LOCKED. LEFT CHEST WALL PERMA CATH IN PLACE FOR DIALYSIS. DRESSING IS C/D/I. CONTINUES ON TELE MONITOR WITH CURRENT READING SR. CALL LIGHT WITHIN REACH. ASPIRATION, FALL AND SAFETY PRECAUTIONS MAINTAINED. WILL ENDORSE PLAN OF CARE TO ONCOMING SHIFT.
[2021-10-18 06:38] LABS: BASOPHILS # (AUTO) 0.1 K/uL (0.0-0.2); BASOPHILS % (AUTO) 0.5 % (0.0-2.0); EOSINOPHILS % (AUTO) 3.5 % (0.0-6.0); HEMATOCRIT 30 % (33-45); HEMOGLOBIN 9.4 g/dL (11.5-14.8); LYMPHOCYTES # (AUTO) 2.2 K/uL (0.8-4.8); LYMPHOCYTES % (AUTO) 17.5 % (20.0-44.0); MEAN CORPUSCULAR HGB CONC 32 g/dl (31.0-36.0); MEAN CORPUSCULAR VOLUME 89 fL (82-100); MONOCYTES # (AUTO) 1.2 K/uL (0.1-1.30); MONOCYTES % (AUTO) 9.7 % (2.0-12.0); NEUTROPHILS # (AUTO) 8.5 K/uL (1.8-8.9); NEUTROPHILS % (AUTO) 68.8 % (43.0-81.0); PLATELET COUNT (AUTO) 378 K/uL (150-450); RED BLOOD CELL COUNT(AUTO) 3.33 MIL/uL (4.0-5.2); WHITE BLOOD COUNT (AUTO) 12.3 K/uL (4.3-11.0)
[2021-10-18 06:51] LABS: CALCIUM, SERUM 8.6 mg/dL (8.5-10.1); CREATININE 3.4 mg/dL (0.6-1.3); PHOSPHORUS 4.1 mg/dL (2.5-4.9); POTASSIUM 4.4 mmol/L (3.5-5.1)
[2021-10-18] MEDS: BLOOD SUGAR DIAGNOSTIC 1 EACH STRIP VI SCH ×4 (07:12→21:52)
[2021-10-18] MEDS: ALBUTEROL FS 2.5 MG/0.5 ML VIAL.NEB NEB SCH ×4 (07:49→20:30)
[2021-10-18] MEDS: IPRATROPIUM NEB FS 0.5 MG/2.5 ML AMPUL.NEB NEB SCH ×4 (07:49→20:30)
[2021-10-18 08:00] VITALS: BP 106/74
[2021-10-18] MEDS: ASPIRIN EC 81 MG TABLET.DR PO SCH (08:06)
[2021-10-18] MEDS: ASPIRIN 81 MG TAB.CHEW PO SCH (08:07)
[2021-10-18] MEDS: LINAGLIPTIN 5 MG TABLET PO SCH (08:07)
[2021-10-18] MEDS: PANTOPRAZOLE 40 MG TABLET.DR PO SCH (08:07)
[2021-10-18] MEDS: SEVELAMER CARBONATE 800 MG TABLET PO SCH ×3 (08:07→17:04)
[2021-10-18] MEDS: AMLODIPINE BESYLATE 10 MG TABLET PO SCH (08:08)
[2021-10-18] MEDS: FERROUS SULFATE (325 MG) 325 MG/TAB TABLET PO SCH (08:09)
[2021-10-18] MEDS: HEPARIN SODIUM, PORCINE 5000 UNITS/1 ML VIAL SQ SCH ×2 (08:38→20:42)
--- NOTE | 2021-10-18 09:31 | NUR ---
RN NOTES BEDSIDE ENDORSEMENT GIVEN TO TINY MEEK. PATIENT TRANSFERRED TO UNIT AT ROOM 327-1.
--- NOTE | 2021-10-18 09:35 | NUR ---
RN NOTES RECEIVED PATIENT FROM TELLY TRANSFERRED VIA BED, BEDSIDE REPORT RECEIVED FROM GAVIOTA MCFADDEN. PATIENT IS ALERT AND ORIENTED X4, VERBALLY RESPONSIVE, NO SIGNS OF ACUTE DISTRESS NOTED. NOTED WITH MIDLINE ON RIGHT UPPER ARM #18G, SALINE LOCKED, INTACT AND PATENT, FLUSHES WELL. PLACED PT ON CHEMICAL EQUIPMENT CONTROLLER, SINUS RHYTHM HR @98. ON O2 @3LPM VIA N/C, NO SOB NOTED, BREATHING EVEN AND UNLABORED. COLOSTOMY BAG INTACT. LEFT CHEST WALL PERMACATH INTACT, DRESSING C/D/I. SAFETY MEASURE IN PLACE, BED IN LOWEST AND LOCKED POSITION, SIDE RAILS UP X2, CALL LIGHT PLACED WITHIN EASY REACH, WARM BLANKET PROVIDED. WILL CONTINUE TO MONITOR PATIENT.
[2021-10-18] MEDS: INSULIN REGULAR, HUMAN 100 UNIT/ML 3 ML VIAL SQ PRN ×2 (11:38→16:54)
--- NOTE | 2021-10-18 12:13 | NUR ---
RN NOTES BLOOD PRESSURE MEDS HELD, PATIENT FOR DIALYSIS TODAY.
[2021-10-18] MEDS: SOD FERRIC GLUC 125 MG in IV NS 0.9% 100 ML IV SCH (14:17)
--- NOTE | 2021-10-18 17:25 | NUR ---
RN NOTES RECEIVED A CALL FROM DR. ELI WITH NEW ORDERS RECEIVED, CARRIED OUT.
--- NOTE | 2021-10-18 18:53 | NUR ---
RN CLOSING NOTES PATIENT IN BED, AWAKE, A/O X4, VERBALLY RESPONSIVE, NO SIGNS OF ACUTE DISTRESS NOTED. REMAINS ON O2 AT 3LPM VIA N/C, SPO2 @100%. NO SOB NOTED, BREATHING EVEN AND UNLABORED. TELE MONITOR READS SINUS RHYTHM, HR @ 93. MIDLINE ON CHAI #18G INTACT AND PATENT, SALINE LOCKED. WITH HD CATHETER ON RIGHT CHEST WALL, DRESSING C/D/I. MEDICATED FOR PAIN NEEDED. COLOSTOMY BAG CHANGED., WITH SOFT BROWNISH STOOL. SAFETY MEASURE IN PLACE. BED IN LOWEST AND LOCKED POSITION, SIDE RAILS UP X2, CALL LIGHT PLACED WITHIN EASY REACH. WILL ENDORSE TO NEXT SHIFT FOR CONTINUITY OF CARE.
--- NOTE | 2021-10-18 19:30 | NUR ---
RN OPENING NOTE PATIENT IN BED AWAKE, A/O X 4 ABLE TO MAKE NEEDS KNOWN. SON AT BEDSIDE. PATIENT ON 3LPM, BREATHING EVEN AND UNLABORED. PATIENT ON TELE SR 98 BPM. PATIENT HAS A COLOSTOMY BAG, NO DRAINAGE AT THIS TIME. RECENTLY CHANGED. STOMA PINK, BAG INTACT. PATIENT HAS A CHAI MIDLINE 18 G- SALINE LOCKED ONLY. PATIENT TO BE NPO AFTER MN. SAFETY MEASURES IN PLACE: BED LOCKED AND IN LOWEST POSITION, ELAINA LIGHT WITHIN REACH, SIDE RAILS UP. HOB ELEVATED. WILL MONITOR PATIENT CLOSELY.
[2021-10-18 20:00] VITALS: BP 161/71
--- NOTE | 2021-10-18 20:40 | NUR ---
MORPHINE 2 MG IV GIVEN FOR PAIN ON THE RIGHT KNEE. WILL REASSESS PAIN AT A LATER TIME
[2021-10-18] MEDS: ATORVASTATIN 40 MG TABLET PO SCH (21:52)
[2021-10-18] MEDS: SIMVASTATIN 20 MG TABLET PO SCH (21:52)
[2021-10-18] MEDS: DOCUSATE SODIUM 100 MG CAPSULE PO SCH (21:52)
[2021-10-18] MEDS: INSULIN GLARGINE, 100 UNIT/ML CARTRIDGE SQ SCH (21:52)
[2021-10-19] VITALS (35 sets, daily range): BP systolic 79–176; BP diastolic 31–100
[2021-10-19] MEDS: MORPHINE SULFATE INJ 2 MG/ML DISP.SYRIN IV PRN ×5 (00:46→22:37)
--- NOTE | 2021-10-19 00:46 | NUR ---
MORPHINE 2 MG IV GIVEN FOR PAIN ON THE RIGHT KNEE. WILL REASSESS MED EFFECTIVENESS
[2021-10-19] MEDS: hydrALAZINE HCL 25 MG TABLET PO SCH ×4 (04:52→21:18)
[2021-10-19] MEDS: METOPROLOL TARTRATE 25 MG TABLET PO SCH ×4 (05:06→23:53)
[2021-10-19 06:16] LABS: BASOPHILS # (AUTO) 0.1 K/uL (0.0-0.2); BASOPHILS % (AUTO) 0.6 % (0.0-2.0); EOSINOPHILS % (AUTO) 4.5 % (0.0-6.0); HEMATOCRIT 25 % (33-45); HEMOGLOBIN 8.2 g/dL (11.5-14.8); LYMPHOCYTES # (AUTO) 3.2 K/uL (0.8-4.8); LYMPHOCYTES % (AUTO) 25.6 % (20.0-44.0); MEAN CORPUSCULAR HGB CONC 32 g/dl (31.0-36.0); MEAN CORPUSCULAR VOLUME 88 fL (82-100); MONOCYTES # (AUTO) 1.2 K/uL (0.1-1.30); MONOCYTES % (AUTO) 9.6 % (2.0-12.0); NEUTROPHILS # (AUTO) 7.4 K/uL (1.8-8.9); NEUTROPHILS % (AUTO) 59.7 % (43.0-81.0); PLATELET COUNT (AUTO) 417 K/uL (150-450); RED BLOOD CELL COUNT(AUTO) 2.87 MIL/uL (4.0-5.2); WHITE BLOOD COUNT (AUTO) 12.5 K/uL (4.3-11.0)
--- NOTE | 2021-10-19 07:25 | NUR ---
RN CLOSING NOTE PATIENT IN BED AWAKE, A/O X 4 ABLE TO MAKE NEEDS KNOWN. PATIENT ON 3LPM, BREATHING EVEN AND UNLABORED. PATIENT ON TELE SR 89 BPM. PATIENT HAS A COLOSTOMY BAG, NO DRAINAGE AT THIS TIME. STOMA PINK, BAG INTACT. PATIENT HAS A CHAI MIDLINE 18 G- SALINE LOCKED ONLY. NPO STATUS MAINTAINED DURING THE SHIFT. SAFETY MEASURES IN PLACE: BED LOCKED AND IN LOWEST POSITION, ELAINA LIGHT WITHIN REACH, SIDE RAILS UP. HOB ELEVATED. ALL NEEDS MET AND ATTENDED. ALL ORDERS CARRIED OUT. WILL ENDORSE TO DAY SHIFT NURSE FOR JESUS.
[2021-10-19 07:26] LABS: CALCIUM, SERUM 8.8 mg/dL (8.5-10.1); CREATININE 5.2 mg/dL (0.6-1.3); PHOSPHORUS 5.1 mg/dL (2.5-4.9); POTASSIUM 5.4 mmol/L (3.5-5.1)
[2021-10-19] MEDS: PANTOPRAZOLE 40 MG TABLET.DR PO SCH (07:30)
--- NOTE | 2021-10-19 07:30 | NUR ---
DIRECTOR OF RESEARCH AND DEVELOPMENT OPENING NOTES RECEIVED PATIENT IN BED, AWAKE, A/O X4, VERBALLY RESPONSIVE, NO SIGNS OF ACUTE DISTRESS NOTED. ON O2 AT 3LPM VIA NASAL CANNULA SATURATING WELL. NO SOB NOTED. NOT IN DISTRESS. ON TELE MONITOR CURRENTLY READING SINUS RHYTHM @ 85BPM. WITH IV ACCESS AT CHAI G18 INTACT AND PATENT, SALINE LOCKED. WITH HD CATHETER ON RIGHT CHEST WALL, DRESSING C/D/I. WITH COLOSTOMY BAG IN PLACED. ON NPO STATUS AWAITING FOR CARDIAC CATH PROCEDURE. SAFETY MEASURES IN PLACED. BED IN LOWEST AND LOCKED POSITION, SIDE RAILS UP X2, CALL LIGHT PLACED WITHIN EASY REACH. WILL CONTINUE TO MONITOR.
[2021-10-19] MEDS: IPRATROPIUM NEB FS 0.5 MG/2.5 ML AMPUL.NEB NEB SCH ×5 (07:35→19:43)
[2021-10-19] MEDS: SEVELAMER CARBONATE 800 MG TABLET PO SCH ×3 (08:00→18:22)
[2021-10-19] MEDS: ALBUTEROL FS 2.5 MG/0.5 ML VIAL.NEB NEB SCH ×4 (08:47→19:43)
--- NOTE | 2021-10-19 08:52 | NUR ---
PATIENT REFUSED TX DUE TO BEEN COLD NO TX GIVEN. Addendum: 10/19/21 at 0855 by SHAKA BARRIOS RT Amended: Links added.
[2021-10-19] MEDS: LINAGLIPTIN 5 MG TABLET PO SCH (09:00)
[2021-10-19] MEDS: AMLODIPINE BESYLATE 10 MG TABLET PO SCH (09:00)
[2021-10-19] MEDS: HEPARIN SODIUM, PORCINE 5000 UNITS/1 ML VIAL SQ SCH ×2 (09:00→21:22)
[2021-10-19] MEDS: FERROUS SULFATE (325 MG) 325 MG/TAB TABLET PO SCH (09:00)
[2021-10-19] MEDS: ASPIRIN 81 MG TAB.CHEW PO SCH (09:00)
[2021-10-19] MEDS: ASPIRIN EC 81 MG TABLET.DR PO SCH (09:00)
[2021-10-19] MEDS: BLOOD SUGAR DIAGNOSTIC 1 EACH STRIP VI SCH ×4 (09:43→21:37)
--- NOTE | 2021-10-19 12:24 | NUR ---
TREATMENT NOT GIVEN DUE TO PATIENT SLEEPING. PATIENT RN NOTIFIED. Addendum: 10/19/21 at 1225 by SHAKA BARRIOS RT Amended: Links added.
--- NOTE | 2021-10-19 12:30 | NUR ---
RN NOTE HEMODIALYSIS DONE. PATIENT TOLERATING WELL WITH AN OUTPUT OF 2L WITH STABLE VITAL SIGNS.
[2021-10-19] MEDS ORDERED: IV NS 0.9% 1,000 ML ONE (14:05)
[2021-10-19] MEDS ORDERED: FENTANYL PF 100MCG/2ML AMPUL ONE (14:05)
[2021-10-19] MEDS ORDERED: IODIXANOL 150 ML IV ONE (14:05)
[2021-10-19] MEDS ORDERED: IV SET PRIMARY PUMP SET 1 EA INFUS.SET MC ONE (14:05)
[2021-10-19] MEDS ORDERED: MIDAZOLAM HCL 2 MG/2ML VIAL ONE (14:06)
[2021-10-19] MEDS ORDERED: HEPARIN SODIUM, PORCINE 5000 UNITS/1 ML VIAL ONE (14:43)
[2021-10-19] MEDS ORDERED: HEPARIN SODIUM, PORCINE 1,000 UNIT/ML VIAL ONE (14:44)
[2021-10-19] MEDS ORDERED: IODIXANOL 320MG/ML 50 ML IV ONE (14:46)
[2021-10-19] MEDS ORDERED: TICAGRELOR 90 MG TABLET PO ONE (14:56)
[2021-10-19] MEDS ORDERED: ASPIRIN 81 MG TAB.CHEW ONE (14:56)
--- NOTE | 2021-10-19 15:00 | NUR ---
RN NOTE PATIENT IS TRANSFERRED TO THE ICU FOR CLOSE MONITORING FROM AIRLINE RESERVATIONIST FOR PATIENT HAD STENT PLACEMENT. ENDORSEMENT GIVEN TO MOUNTED POLICE NAMED TAYO.
--- NOTE | 2021-10-19 15:40 | NUR ---
RECEIVED PT. FROM BANK GUARD, NO APPARENT DISTRESS NOTED AT THIS TIME; S/P STENT PLACEMENT WITH RIGHT FEMORAL DRESSING CLEAN/DRY/INTACT, NO BLEEDING NOTED. PT. ABLE TO MAKE NEEDS KNOWN. TO KEEP BEDREST X 2 HRS PER MD ORDER.
--- NOTE | 2021-10-19 15:41 | NUR ---
PER VISITOR INFORMATION ASSISTANT KELSI, BRILINTA WAS GIVEN ALREADY
--- NOTE | 2021-10-19 15:45 | NUR ---
T=99.0F Addendum: 10/19/21 at 1928 by TAYO LEUNG RN [id number]; TEMP TAKEN ORALLY
--- NOTE | 2021-10-19 15:58 | NUR ---
PATIENT TRANSFERRED TO ICU AFTER PROCEDURE. TX NOT GIVEN RN AWARED. Addendum: 10/19/21 at 1559 by SHAKA BARRIOS RT Amended: Links added.
[2021-10-19] MEDS: TICAGRELOR 90 MG TABLET PO SCH (17:00)
--- NOTE | 2021-10-19 17:40 | NUR ---
HOB AT 10 DEG. NOW PER MD ORDER
--- NOTE | 2021-10-19 18:50 | NUR ---
DINNER TAKEN 60% CONSUMED
--- NOTE | 2021-10-19 19:40 | NUR ---
FRAME MAKER OPENING NOTES, RECEIVED PATIENT IN BED, AWAKE, A/O X4, VERBALLY RESPONSIVE. ON 3LPM VIA NASAL CANNULA AND PT TOLERATED WELL. IV ACCESS ON CHAI MIDLINE #18G INTACT AND PATENT. HD CATHETER ON RIGHT CHEST WALL AND COVERED WITH DRY DRESSING. COLOSTOMY BAG IN PLACE. ON S/P PCI MID LAD STENT PLACEMENT. SITE COVERED WITH DRY DRESSING. NO BLEEDING NOTED. NO C/O PAIN OR DISCOMFORT. NO ACUTE DISTRESS. ALL SAFETY MEASURES IN PLACE. BED IN LOWEST POSITION AND LOCKED, SIDE RAILS UP X2, PLACE CALL LIGHT WITHIN REACH. WILL CONTINUE TO MONITOR. Addendum: 10/19/21 at 2004 by JUAN M CHUNG RN wrong chart
--- NOTE | 2021-10-19 19:40 | NUR ---
GLYCERIN OPERATOR OPENING NOTES, RECEIVED PATIENT IN BED, AWAKE, A/O X4, VERBALLY RESPONSIVE. ON 3LPM VIA NASAL CANNULA AND PT TOLERATED WELL. IV ACCESS ON CHAI MIDLINE #18G INTACT AND PATENT. HD CATHETER ON LEFT CHEST WALL AND COVERED WITH DRY DRESSING. COLOSTOMY BAG IN PLACE. ON S/P PCI MID LAD STENT PLACEMENT ON RT FEMORAL. SITE COVERED WITH DRY DRESSING. NO ACTIVE BLEEDING NOTED. NO C/O PAIN OR DISCOMFORT. NO ACUTE DISTRESS. ALL SAFETY MEASURES IN PLACE. BED IN LOWEST POSITION AND LOCKED, SIDE RAILS UP X2, PLACE CALL LIGHT WITHIN REACH. WILL CONTINUE TO MONITOR.
[2021-10-19] MEDS: DOCUSATE SODIUM 100 MG CAPSULE PO SCH (21:19)
[2021-10-19] MEDS: SIMVASTATIN 20 MG TABLET PO SCH (21:20)
[2021-10-19] MEDS: ATORVASTATIN 40 MG TABLET PO SCH (21:20)
[2021-10-19] MEDS: INSULIN GLARGINE, 100 UNIT/ML CARTRIDGE SQ SCH (21:42)
[2021-10-19] MEDS: *INSULIN REGULAR(HUMULIN R)HUM 100 UNIT/ML VIAL SQ PRN (21:44)
--- NOTE | 2021-10-19 21:52 | NUR ---
RN NOTES: PT'S BLOOD SUGAR 182, 35 UNITS OF LANTUS AND 3 UNITS OF REGULAR INSULIN GIVEN. NO S/S OF HYPER/HYPOGLYCEMIA. WILL CONTINUE TO MONITOR
--- NOTE | 2021-10-19 22:43 | NUR ---
RN NOTES: PT C/O SEVERE PAIN ON RT KNEE, 9/10 PAIN SCALE. MORPHINE GIVEN PRN ORDER. PT TOLERATED WELL. WILL CONTINUE TO MONITOR
[2021-10-20] VITALS (44 sets, daily range): BP systolic 79–184; BP diastolic 37–103
[2021-10-20] MEDS: MORPHINE SULFATE INJ 2 MG/ML DISP.SYRIN IV PRN ×5 (03:56→23:27)
--- NOTE | 2021-10-20 04:01 | NUR ---
RN NOTES: PT C/O SEVERE PAIN ON RT KNEE, 9/10 PAIN SCALE. MORPHINE GIVEN PRN ORDER. PT TOLERATED WELL. WILL CONTINUE TO MONITOR
[2021-10-20 04:30] LABS: BASOPHILS # (AUTO) 0.1 K/uL (0.0-0.2); EOSINOPHILS % (AUTO) 4.5 % (0.0-6.0); HEMATOCRIT 23 % (33-45); HEMOGLOBIN 7.6 g/dL (11.5-14.8); LYMPHOCYTES % (AUTO) 21.8 % (20.0-44.0); MEAN CORPUSCULAR HGB CONC 33 g/dl (31.0-36.0); MEAN CORPUSCULAR VOLUME 89 fL (82-100); MONOCYTES # (AUTO) 1.5 K/uL (0.1-1.30); MONOCYTES % (AUTO) 10.5 % (2.0-12.0); NEUTROPHILS # (AUTO) 8.7 K/uL (1.8-8.9); NEUTROPHILS % (AUTO) 62.2 % (43.0-81.0); PLATELET COUNT (AUTO) 401 K/uL (150-450); RED BLOOD CELL COUNT(AUTO) 2.61 MIL/uL (4.0-5.2); WHITE BLOOD COUNT (AUTO) 13.9 K/uL (4.3-11.0)
[2021-10-20 04:34] LABS: CALCIUM, SERUM 8.6 mg/dL (8.5-10.1); MAGNESIUM 1.9 mg/dL (1.8-2.4); POTASSIUM 5.1 mmol/L (3.5-5.1)
[2021-10-20] MEDS: hydrALAZINE HCL 25 MG TABLET PO SCH ×3 (04:36→21:09)
[2021-10-20] MEDS: METOPROLOL TARTRATE 25 MG TABLET PO SCH ×4 (05:54→23:28)
--- NOTE | 2021-10-20 06:30 | NUR ---
SALES CONSULTANT RESIDENTIAL MANAGER CLOSING NOTES, PATIENT IN BED, AWAKE, A/O X4, VERBALLY RESPONSIVE. ON 3LPM VIA NASAL CANNULA AND PT TOLERATED WELL. O2 SAT 97%. IV ACCESS ON CHAI MIDLINE #18G INTACT AND PATENT. HD CATHETER ON LEFT CHEST WALL AND COVERED WITH DRY DRESSING. COLOSTOMY BAG IN PLACE. ON S/P PCI MID LAD STENT PLACEMENT ON RT FEMORAL. SITE COVERED WITH DRY DRESSING. NO ACTIVE BLEEDING NOTED. NO C/O PAIN OR DISCOMFORT. NO ACUTE DISTRESS AT THIS MOMENT. ALL DUE MEDS GIVEN ORDERED. ALL SAFETY MEASURES IN PLACE. BED IN LOWEST POSITION AND LOCKED, SIDE RAILS UP X2, PLACE CALL LIGHT WITHIN REACH. WILL ENDORSE TO MORNING SHIFT NURSE.
[2021-10-20] MEDS: BLOOD SUGAR DIAGNOSTIC 1 EACH STRIP VI SCH ×4 (07:28→21:37)
[2021-10-20] MEDS: SEVELAMER CARBONATE 800 MG TABLET PO SCH ×3 (07:30→17:11)
[2021-10-20] MEDS: PANTOPRAZOLE 40 MG TABLET.DR PO SCH (07:30)
--- NOTE | 2021-10-20 07:30 | NUR ---
RN OPENING NOTE PT OBSERVED IN BED. PT ON 3L O2 VIA NC TOLERATING WELL SAT 99%. PT IS A/OX4. PT HAS COLOSTOMY BAG AND IS ANURIC. PT SCHEDULED FOR HD TODAY. IV ACCESS L CHEST WALL HD CATH AND R UP MIDLINE. BED IS LOCKED IN LOWEST POSITION X2 BED RAILS UP AND ALL HOSPITAL SAFETY MEASURES ARE IN PLACE. WILL CONTINUE TO MONITOR THIS SHIFT.
[2021-10-20] MEDS: INSULIN REGULAR, HUMAN 100 UNIT/ML 3 ML VIAL SQ PRN ×3 (07:33→16:54)
[2021-10-20] MEDS: ALBUTEROL FS 2.5 MG/0.5 ML VIAL.NEB NEB SCH ×4 (07:35→20:15)
[2021-10-20] MEDS: IPRATROPIUM NEB FS 0.5 MG/2.5 ML AMPUL.NEB NEB SCH ×4 (07:35→20:14)
[2021-10-20] MEDS: ONDANSETRON HCL/PF 4 MG/2 ML VIAL IVP PRN (07:38)
--- NOTE | 2021-10-20 08:00 | NUR ---
RN NOTE: MEDS PT SCHEDULED FOR HD TODAY. WILL HOLD BP MEDS.
[2021-10-20] MEDS: ASPIRIN EC 81 MG TABLET.DR PO SCH (08:03)
[2021-10-20] MEDS: FERROUS SULFATE (325 MG) 325 MG/TAB TABLET PO SCH (08:03)
[2021-10-20] MEDS: LINAGLIPTIN 5 MG TABLET PO SCH (08:03)
[2021-10-20] MEDS: AMLODIPINE BESYLATE 10 MG TABLET PO SCH (08:05)
[2021-10-20] MEDS: HEPARIN SODIUM, PORCINE 5000 UNITS/1 ML VIAL SQ SCH ×2 (08:07→21:29)
[2021-10-20] MEDS: TICAGRELOR 90 MG TABLET PO SCH ×2 (08:09→16:43)
--- NOTE | 2021-10-20 08:33 | NUR ---
RT PATIENT REFUSED RESP TX. PATIENT NAUSEOUS. NO SOB, BREATH SOUNDS DIM CLEAR.
[2021-10-20] MEDS ORDERED: ASPIRIN EC 81 MG TABLET.DR PO SCH (09:00)
--- NOTE | 2021-10-20 11:40 | NUR ---
RN NOTE: MEDS PT SCHEDULED FOR HD TODAY. WILL HOLD BP MEDS.
--- NOTE | 2021-10-20 18:15 | NUR ---
RN NOTES: TRANSFER PT TRANSFERRED TO AND IS STABLE AT THIS TIME. PT TRANSFERRED WITH ALL BELONGINGS AND REPORT GIVEN TO GAVIOTA SIMPSON AT BEDSIDE. PT DID NOT HAVE HD TODAY AND IS SCHEDULED FOR HD, TOMORROW.
--- NOTE | 2021-10-20 18:30 | NUR ---
RN CLOSING NOTE PATIENT WAS TRANSFER FROM ICU, PATIENT CAME VIA GURNEY WITH NO SIGNS OF DISTRESS. REPORT RECEIVED FROM JESSY. V/S TAKEN, STABLE AND RECORDED. PATIENT AWAKE IN BED RESTING, A/O X4. NO S/S OF PAIN NOTED AT THIS TIME. ON 3L OXYGEN VIA NC, NO DISTRESS OR SHORTNESS OF BREATH NOTED. IV ACCESS CHAI MIDLINE, INTACT, PATENT AND FLUSHING WELL. PATIENT WITH EXTERNAL AIRCRAFT LOAD CONTROLLER WITH CURRENT READING OF SR, NO CARDIAC DISTRESS NOTED. PATIENT WAS ORIENTED TO ROOM SET UP AND SHOWED PATIENT HOW TO USE CALL LIGHT. FALL AND SAFETY MEASURES IN PLACE, BED ALARM ON BED IN LOW AND LOCK POSITION, CALL LIGHT AND TABLE WITHIN EASY REACH, SIDE RAILS UP X2. WILL ENDORSE TO HEALTH CLUB MANAGER.
--- NOTE | 2021-10-20 19:42 | NUR ---
MILLER APPRENTICE OPENING NOTE RECEIVED PATIENT AWAKE IN BED. A/O X4 AND ABLE TO MAKE NEEDS KNOWN. ON 3L OXYGEN VIA NC, TOLERATING WELL. NO SOB OR S/S OF RESPIRATORY DISTRESS. BREATHING EVEN AND UNLABORED. ON EXTERNAL MANUFACTURING ENGINEERING INTERN WITH CURRENT READING OF SR. IV ACCESS CHAI MIDLINE SL, INTACT AND PATENT. SAFETY PRECAUTIONS IN PLACE. BED IN LOWEST LOCKED POSITION, HOB ELEVATED, SIDE RAILS UP X2, AND CALL LIGHT AND TABLE WITHIN REACH. ALL NEEDS MET AT THIS TIME.
[2021-10-20] MEDS: ATORVASTATIN 40 MG TABLET PO SCH (21:08)
[2021-10-20] MEDS: DOCUSATE SODIUM 100 MG CAPSULE PO SCH (21:08)
[2021-10-20] MEDS: SIMVASTATIN 20 MG TABLET PO SCH (21:08)
--- NOTE | 2021-10-20 21:29 | NUR ---
RN NOTE CHIEF DESIGN ENGINEER MAHAD ADVISED OF HBG OF 7.6. ADVISED TO STILL GIVE HEPARIN. CHARGE NURSE ESVIN TADEO.
[2021-10-20] MEDS: INSULIN GLARGINE, 100 UNIT/ML CARTRIDGE SQ SCH (21:49)
--- NOTE | 2021-10-20 23:28 | NUR ---
RN NOTE PT COMPLAINED OF PAIN 10/10 OF THE RIGHT KNEE. ADMINISTERED MORPHINE 2 MG FOR SEVERE PAIN ORDERED. MADE COMFORTABLE IN BED. ALL NEEDS MET AT THIS TIME.
[2021-10-21] VITALS: BP 156/58
[2021-10-21 04:00] VITALS: BP 132/56
[2021-10-21] MEDS: ACETAMINOPHEN 325 MG TABLET PO PRN (04:44)
[2021-10-21] MEDS: hydrALAZINE HCL 25 MG TABLET PO SCH ×3 (04:45→21:29)
--- NOTE | 2021-10-21 04:45 | NUR ---
RN NOTE PT NOTED WITH FEVER OF 100.6. COOLING MEASURES ALREADY STARTED. ADMINISTERED TYLENOL 650 MG FOR FEVER ORDERED. MADE COMFORTABLE IN BED.
[2021-10-21] MEDS: METOPROLOL TARTRATE 25 MG TABLET PO SCH ×3 (06:00→18:09)
[2021-10-21 06:36] LABS: BASOPHILS # (AUTO) 0.1 K/uL (0.0-0.2); BASOPHILS % (AUTO) 0.4 % (0.0-2.0); EOSINOPHILS % (AUTO) 3.4 % (0.0-6.0); HEMATOCRIT 25 % (33-45); HEMOGLOBIN 7.7 g/dL (11.5-14.8); LYMPHOCYTES # (AUTO) 3.2 K/uL (0.8-4.8); LYMPHOCYTES % (AUTO) 24.4 % (20.0-44.0); MEAN CORPUSCULAR HGB CONC 31 g/dl (31.0-36.0); MEAN CORPUSCULAR VOLUME 91 fL (82-100); MONOCYTES # (AUTO) 1.4 K/uL (0.1-1.30); MONOCYTES % (AUTO) 10.8 % (2.0-12.0); PLATELET COUNT (AUTO) 485 K/uL (150-450); RED BLOOD CELL COUNT(AUTO) 2.69 MIL/uL (4.0-5.2); WHITE BLOOD COUNT (AUTO) 13.1 K/uL (4.3-11.0)
[2021-10-21] MEDS: BLOOD SUGAR DIAGNOSTIC 1 EACH STRIP VI SCH ×4 (06:43→22:17)
--- NOTE | 2021-10-21 06:50 | NUR ---
MOLDER VACUUM CLOSING NOTE PATIENT AWAKE IN BED. A/O X4 AND ABLE TO MAKE NEEDS KNOWN. ON 3L OXYGEN VIA NC, TOLERATING WELL. NO SOB OR S/S OF RESPIRATORY DISTRESS. BREATHING EVEN AND UNLABORED. ON EXTERNAL CULINARY INSTRUCTOR WITH CURRENT READING OF SR 92 BPM WITH 1ST DEGREE AV BLOCK. IV ACCESS CHAI MIDLINE SL, INTACT AND PATENT. ALL DUE MEDS GIVEN ORDERED. SAFETY PRECAUTIONS IN PLACE. BED IN LOWEST LOCKED POSITION, HOB ELEVATED, SIDE RAILS UP X2, AND CALL LIGHT AND TABLE WITHIN REACH. ALL NEEDS MET AT THIS TIME AND WILL ENDORSE TO ONCOMING NURSE FOR JESUS.
[2021-10-21 07:17] LABS: CREATININE 5.8 mg/dL (0.6-1.3); PHOSPHORUS 3.8 mg/dL (2.5-4.9)
--- NOTE | 2021-10-21 07:30 | NUR ---
TAX ACCOUNTANT OPENING NOTES RECEIVED PATIENT ON BED AWAKE AND A/O X4. ON O2 AT 3LPM VIA NASAL CANNULA SATURATING WELL. NO SOB NOTED. NOT IN DISTRESS. WITH COMPLAINTS OF ABDOMINAL PAIN AT THE SCALE OF 9/10. COMFORT MEASURES PROVIDED. ON TELE MONITOR CURRENTLY READING SINUS RHYTHM AT 86BPM. WITH IV ACCESS AT THE RIGHT UPPER ARM MIDLINE, SALINE LOCKED, PATENT AND INTACT. WITH LEFT CHESTWALL HD CATH WITH CLEAN AND DRY DRESSING. SAFETY MEASURES IN PLACED. CALL LIGHT WITHIN REACH. BED ON LOWEST LOCKED POSITION, SIDE RAILS UP X2. WILL CONTINUE TO MONITOR.
[2021-10-21] MEDS: ALBUTEROL FS 2.5 MG/0.5 ML VIAL.NEB NEB SCH ×4 (07:35→20:06)
[2021-10-21] MEDS: IPRATROPIUM NEB FS 0.5 MG/2.5 ML AMPUL.NEB NEB SCH ×4 (07:35→20:06)
[2021-10-21 07:55] LABS: CALCIUM, SERUM 8.7 mg/dL (8.5-10.1); MAGNESIUM 2.1 mg/dL (1.8-2.4)
[2021-10-21 08:00] VITALS: BP 122/57
[2021-10-21] MEDS: MORPHINE SULFATE INJ 2 MG/ML DISP.SYRIN IV PRN ×2 (08:02→15:21)
[2021-10-21] MEDS: SEVELAMER CARBONATE 800 MG TABLET PO SCH ×3 (08:07→18:09)
[2021-10-21] MEDS: FERROUS SULFATE (325 MG) 325 MG/TAB TABLET PO SCH (08:11)
[2021-10-21] MEDS: LINAGLIPTIN 5 MG TABLET PO SCH (08:12)
[2021-10-21] MEDS: ASPIRIN EC 81 MG TABLET.DR PO SCH (08:12)
[2021-10-21] MEDS: PANTOPRAZOLE 40 MG TABLET.DR PO SCH (08:12)
[2021-10-21] MEDS: AMLODIPINE BESYLATE 10 MG TABLET PO SCH (09:00)
[2021-10-21] MEDS: TICAGRELOR 90 MG TABLET PO SCH ×2 (09:10→17:03)
[2021-10-21] MEDS: HEPARIN SODIUM, PORCINE 5000 UNITS/1 ML VIAL SQ SCH (09:11)
[2021-10-21] MEDS: ONDANSETRON HCL/PF 4 MG/2 ML VIAL IVP PRN (10:37)
[2021-10-21 15:52] VITALS: BP 182/86
[2021-10-21] MEDS: INSULIN REGULAR, HUMAN 100 UNIT/ML 3 ML VIAL SQ PRN (17:15)
--- NOTE | 2021-10-21 19:00 | NUR ---
PULVERIZER TENDER CLOSING NOTES PATIENT ON BED AWAKE AND A/O X4. ON O2 AT 3LPM VIA NASAL CANNULA SATURATING WELL. NO SOB NOTED. NOT IN DISTRESS. WITH NO COMPLAINTS OF PAIN OR DISCOMFORT AT THIS TIME. ON TELE MONITOR CURRENTLY READING SINUS RHYTHM AT 84BPM. WITH IV ACCESS AT THE RIGHT UPPER ARM MIDLINE, SALINE LOCKED, PATENT AND INTACT. WITH LEFT CHESTWALL HD CATH WITH CLEAN AND DRY DRESSING. DUE MEDS GIVEN. SAFETY MEASURES IN PLACED. CALL LIGHT WITHIN REACH. BED ON LOWEST LOCKED POSITION, SIDE RAILS UP X2. WILL ENDORSE TO NEXT SHIFT FOR JESUS.
[2021-10-21 20:00] VITALS: BP 139/40
--- NOTE | 2021-10-21 20:03 | NUR ---
SMOKE INSPECTOR OPENING NOTES. PATIENT ON BED AWAKE AND A/O X4. ON O2 AT 3LPM VIA NASAL CANNULA SATURATING WELL. NO SIGN SOB/DISTRESS,NO COMPLAINTS OF PAIN/DISCOMFORT AT THIS TIME. ON TELE MONITOR CURRENTLY READING SINUS RHYTHM AT 82 BPM. WITH IV ACCESS AT THE RIGHT UPPER ARM MIDLINE, SALINE LOCKED, PATENT AND INTACT. WITH LEFT CHESTWALL HD CATH WITH CLEAN AND DRY DRESSING.SAFETY MEASURES IN PLACED. CALL LIGHT WITHIN REACH. BED ON LOWEST LOCKED POSITION, SIDE RAILS UP X2. WILL CONTINUE TO MONIOTR.
[2021-10-21] MEDS: SIMVASTATIN 20 MG TABLET PO SCH (21:28)
[2021-10-21] MEDS: ATORVASTATIN 40 MG TABLET PO SCH (21:28)
[2021-10-21] MEDS: DOCUSATE SODIUM 100 MG CAPSULE PO SCH (21:29)
[2021-10-21] MEDS: INSULIN GLARGINE, 100 UNIT/ML CARTRIDGE SQ SCH (22:36)
[2021-10-22] VITALS: BP 156/46
[2021-10-22] MEDS: METOPROLOL TARTRATE 25 MG TABLET PO SCH ×4 (00:39→17:47)
[2021-10-22] MEDS: MORPHINE SULFATE INJ 2 MG/ML DISP.SYRIN IV PRN ×4 (03:29→19:55)
[2021-10-22 04:00] VITALS: BP 150/40
[2021-10-22 04:06] VITALS: BP 156/46
[2021-10-22] MEDS: hydrALAZINE HCL 25 MG TABLET PO SCH ×3 (05:23→22:16)
--- NOTE | 2021-10-22 06:39 | NUR ---
BASKETBALL SCOUT CLOSING NOTES. PATIENT ON BED AWAKE AND A/O X4. ON O2 AT 3LPM VIA NASAL CANNULA SATURATING WELL. NO SIGN SOB/DISTRESS,NO COMPLAINTS OF PAIN/DISCOMFORT AT THIS TIME. ON TELE MONITOR CURRENTLY READING SINUS RHYTHM AT 85 BPM. WITH IV ACCESS AT THE RIGHT UPPER ARM MIDLINE, SALINE LOCKED, PATENT AND INTACT. WITH LEFT CHESTWALL HD CATH WITH CLEAN AND DRY DRESSING.SAFETY MEASURES IN PLACED. CALL LIGHT WITHIN REACH. BED ON LOWEST LOCKED POSITION, SIDE RAILS UP X2. WILL ENDORSED TO NEXT SHIFT.
--- NOTE | 2021-10-22 07:19 | NUR ---
SPECIAL PROGRAMS DIRECTOR OPENING NOTE PATIENT ON BED AWAKE. PATIENT IS A/O X4. ON O2 AT 3LPM VIA NASAL CANNULA SATURATING WELL. NO SIGN SOB/DISTRESS RESPIRATORY DISTRESS. ON TELE MONITOR CURRENTLY READING SINUS RHYTHM AT 80'S BPM. WITH IV ACCESS AT THE RIGHT UPPER ARM MIDLINE, SALINE LOCK, PATENT AND INTACT. WITH LEFT UPPER CHESTWALL HD CATH COVERED WITH TEGADERM, WITH INTACT AND DRY. SAFETY MEASURES IN PLACED. CALL LIGHT WITHIN REACH. BED ON LOWEST LOCKED POSITION, SIDE RAILS UP X2.
[2021-10-22 07:24] LABS: BASOPHILS # (AUTO) 0.1 K/uL (0.0-0.2); BASOPHILS % (AUTO) 0.5 % (0.0-2.0); EOSINOPHILS % (AUTO) 2.7 % (0.0-6.0); HEMATOCRIT 25 % (33-45); HEMOGLOBIN 8.1 g/dL (11.5-14.8); LYMPHOCYTES # (AUTO) 1.9 K/uL (0.8-4.8); LYMPHOCYTES % (AUTO) 14.9 % (20.0-44.0); MEAN CORPUSCULAR HGB CONC 32 g/dl (31.0-36.0); MEAN CORPUSCULAR VOLUME 90 fL (82-100); MONOCYTES # (AUTO) 1.1 K/uL (0.1-1.30); MONOCYTES % (AUTO) 8.9 % (2.0-12.0); NEUTROPHILS # (AUTO) 9.3 K/uL (1.8-8.9); PLATELET COUNT (AUTO) 528 K/uL (150-450); RED BLOOD CELL COUNT(AUTO) 2.78 MIL/uL (4.0-5.2); WHITE BLOOD COUNT (AUTO) 12.7 K/uL (4.3-11.0)
[2021-10-22] MEDS: BLOOD SUGAR DIAGNOSTIC 1 EACH STRIP VI SCH ×4 (07:48→22:28)
[2021-10-22 07:57] LABS: CALCIUM, SERUM 8.8 mg/dL (8.5-10.1); CREATININE 4.7 mg/dL (0.6-1.3); MAGNESIUM 2.1 mg/dL (1.8-2.4); PHOSPHORUS 4.7 mg/dL (2.5-4.9); POTASSIUM 4.6 mmol/L (3.5-5.1)
[2021-10-22] MEDS: IPRATROPIUM NEB FS 0.5 MG/2.5 ML AMPUL.NEB NEB SCH ×4 (08:43→20:06)
[2021-10-22] MEDS: ALBUTEROL FS 2.5 MG/0.5 ML VIAL.NEB NEB SCH ×4 (08:43→20:06)
[2021-10-22] MEDS: FERROUS SULFATE (325 MG) 325 MG/TAB TABLET PO SCH (08:50)
[2021-10-22] MEDS: ASPIRIN EC 81 MG TABLET.DR PO SCH (08:50)
[2021-10-22] MEDS: LINAGLIPTIN 5 MG TABLET PO SCH (08:50)
[2021-10-22] MEDS: PANTOPRAZOLE 40 MG TABLET.DR PO SCH (08:50)
[2021-10-22] MEDS: SEVELAMER CARBONATE 800 MG TABLET PO SCH ×3 (08:50→17:11)
[2021-10-22] MEDS: AMLODIPINE BESYLATE 10 MG TABLET PO SCH (08:51)
[2021-10-22] MEDS: TICAGRELOR 90 MG TABLET PO SCH ×2 (08:53→17:11)
[2021-10-22] MEDS: NITROGLYCERIN 0.4 MG/TAB BOTTLE SL PRN (16:50)
--- NOTE | 2021-10-22 17:00 | NUR ---
MS RN NOTE PATIENT COMPLAINED OF CHEST PAIN. NITRO GIVEN SL X 1. CHEST PAIN RELIEVED. COMFORT MEASURES PROVIDED. IN STABLE CONDITION.
[2021-10-22] MEDS: ACETAMINOPHEN 325 MG TABLET PO PRN (17:11)
[2021-10-22] MEDS: INSULIN REGULAR, HUMAN 100 UNIT/ML 3 ML VIAL SQ PRN (17:18)
--- NOTE | 2021-10-22 19:00 | NUR ---
PERENNIAL HOUSE MANAGER CLOSING NOTE PATIENT ON BED AWAKE. PATIENT IS A/O X4. ON O2 AT 3LPM VIA NASAL CANNULA SATURATING WELL. NO SIGN SOB/DISTRESS RESPIRATORY DISTRESS. NO COMPLAIN OF CHEST PAIN WITH IV ACCESS AT THE RIGHT UPPER ARM MIDLINE, SALINE LOCK, PATENT AND INTACT. WITH LEFT UPPER CHESTWALL HD CATH COVERED WITH TEGADERM, WITH INTACT AND DRY. SAFETY MEASURES IN PLACED. CALL LIGHT WITHIN REACH. BED ON LOWEST LOCKED POSITION, SIDE RAILS UP X2. WILL ENDORSE TO NEXT SHIFT FOR CONTINUITY OF CARE.
--- NOTE | 2021-10-22 19:30 | NUR ---
MS RN OPENING NOTE RECEIVED PATIENT IN BED; AWAKE, ALERT AND ORIENTED X4. ON 3LPM O2 INHALATION VIA NASAL CANNULA, SATURATING WELL. IN NO ACUTE DISTRESS NOTED. NO COMPLAIN OF CHEST PAIN. WITH IV ACCESS AT RIGHT UPPER ARM; MIDLINE; PATENT, INTACT AND FLUSHES WELL. WITH LEFT UPPER CHEST WALL HD CATH COVERED WITH TEGADERM. ABLE TO MAKE NEEDS KNOWN. SAFETY MEASURES IMPLEMENTED: CALL LIGHT AND TABLE WITHIN EASY REACH, SIDE RAILS UP X2, BED IN LOWEST LOCKED POSITION. WILL CONTINUE TO MONITOR.
[2021-10-22 20:00] VITALS: BP 137/56
[2021-10-22 20:45] VITALS: BP 137/56
[2021-10-22] MEDS: ATORVASTATIN 40 MG TABLET PO SCH (22:09)
[2021-10-22] MEDS: DOCUSATE SODIUM 100 MG CAPSULE PO SCH (22:10)
[2021-10-22] MEDS: SIMVASTATIN 20 MG TABLET PO SCH (22:10)
[2021-10-22] MEDS: INSULIN GLARGINE, 100 UNIT/ML CARTRIDGE SQ SCH (22:47)
[2021-10-23] MEDS: MORPHINE SULFATE INJ 2 MG/ML DISP.SYRIN IV PRN ×2 (00:14→22:57)
[2021-10-23] MEDS: METOPROLOL TARTRATE 25 MG TABLET PO SCH ×4 (00:16→18:00)
[2021-10-23] MEDS: hydrALAZINE HCL 25 MG TABLET PO SCH ×3 (05:30→21:00)
--- NOTE | 2021-10-23 07:05 | NUR ---
MS RN CLOSING NOTE PATIENT IS IN BED; AWAKE, ALERT AND ORIENTED X4. ON 3LPM O2 INHALATION VIA NASAL CANNULA, SATURATING WELL. IN NO ACUTE DISTRESS NOTED. NO COMPLAIN OF CHEST PAIN. WITH IV ACCESS AT RIGHT UPPER ARM; MIDLINE; PATENT, INTACT AND FLUSHES WELL. WITH LEFT UPPER CHEST WALL HD CATH COVERED WITH TEGADERM. NEEDS ATTENDED. SAFETY MEASURES IN PLACE. ENDORSED TO MORNING SHIFT FOR JESUS.
--- NOTE | 2021-10-23 07:15 | NUR ---
ENGLISH FACULTY MEMBER OPENING NOTE PATIENT ON BED AWAKE. PATIENT IS A/O X4. ON O2 AT 3LPM VIA NASAL CANNULA SATURATING WELL. NO SIGN SOB/DISTRESS RESPIRATORY DISTRESS. WITH IV ACCESS AT THE RIGHT UPPER ARM MIDLINE, SALINE LOCK, PATENT AND INTACT. WITH LEFT UPPER CHESTWALL HD CATH COVERED WITH TEGADERM, WITH INTACT AND DRY. SAFETY MEASURES IN PLACED. CALL LIGHT WITHIN REACH. BED ON LOWEST LOCKED POSITION, SIDE RAILS UP X2.
[2021-10-23 07:17] LABS: BASOPHILS # (AUTO) 0.1 K/uL (0.0-0.2); BASOPHILS % (AUTO) 0.6 % (0.0-2.0); EOSINOPHILS % (AUTO) 3.2 % (0.0-6.0); HEMATOCRIT 22 % (33-45); LYMPHOCYTES # (AUTO) 2.5 K/uL (0.8-4.8); LYMPHOCYTES % (AUTO) 19.3 % (20.0-44.0); MEAN CORPUSCULAR HGB CONC 32 g/dl (31.0-36.0); MEAN CORPUSCULAR VOLUME 90 fL (82-100); MONOCYTES % (AUTO) 8.2 % (2.0-12.0); NEUTROPHILS # (AUTO) 8.7 K/uL (1.8-8.9); NEUTROPHILS % (AUTO) 68.7 % (43.0-81.0); PLATELET COUNT (AUTO) 472 K/uL (150-450); RED BLOOD CELL COUNT(AUTO) 2.45 MIL/uL (4.0-5.2); WHITE BLOOD COUNT (AUTO) 12.7 K/uL (4.3-11.0)
[2021-10-23] MEDS: ALBUTEROL FS 2.5 MG/0.5 ML VIAL.NEB NEB SCH ×5 (07:37→20:05)
[2021-10-23] MEDS: IPRATROPIUM NEB FS 0.5 MG/2.5 ML AMPUL.NEB NEB SCH ×5 (07:37→20:05)
[2021-10-23] MEDS: BLOOD SUGAR DIAGNOSTIC 1 EACH STRIP VI SCH ×4 (07:39→21:57)
[2021-10-23] MEDS: AMLODIPINE BESYLATE 10 MG TABLET PO SCH (09:00)
[2021-10-23] MEDS: LINAGLIPTIN 5 MG TABLET PO SCH (09:02)
[2021-10-23] MEDS: SEVELAMER CARBONATE 800 MG POWD.PACK PO SCH ×3 (09:02→18:00)
[2021-10-23] MEDS: PANTOPRAZOLE 40 MG TABLET.DR PO SCH (09:02)
[2021-10-23] MEDS: ASPIRIN EC 81 MG TABLET.DR PO SCH (09:02)
[2021-10-23] MEDS: FERROUS SULFATE (325 MG) 325 MG/TAB TABLET PO SCH (09:03)
[2021-10-23] MEDS: TICAGRELOR 90 MG TABLET PO SCH ×2 (09:17→18:34)
[2021-10-23] MEDS ORDERED: SIMETHICONE 80 MG TAB.CHEW PO PRN (11:00)
[2021-10-23 11:18] LABS: CREATININE 5.7 mg/dL (0.6-1.3); PHOSPHORUS 4.1 mg/dL (2.5-4.9)
[2021-10-23 12:13] LABS: POTASSIUM 5.3 mmol/L (3.5-5.1)
[2021-10-23] MEDS: DOCUSATE SODIUM 100 MG CAPSULE PO SCH ×2 (12:35→18:00)
[2021-10-23] MEDS: HEPARIN-LOCK FLUSH PORCINE PF 100 UNITS/1 ML (10 ML)DISP.SYRIN IVF PRN (13:20)
[2021-10-23] MEDS: PIPERACILLIN /TAZOBACTAM 2.25 G in IV D5W 50 ML IV SCH ×2 (13:20→21:40)
--- NOTE | 2021-10-23 14:30 | NUR ---
MS RN NOTE PATIENT FINISHED HD, TOLERATED WELL. WITH DRESSING CHANGED BY HD RN. COMFORT MEASURES PROVIDED. IN STABLE CONDITION. SEEN BY DR. FRAZIER.
--- NOTE | 2021-10-23 17:45 | NUR ---
MS RN NOTE PATIENT FOR CT OF THE ABDOMEN WITH CONTRAST BUT RADIOLOGIST WANTS TO SECURE HD ORDER FOR TOMORROW POST CT WITH CONTRAST. CALLED DR. FLOYD THROUGH ANSWERING SERVICE. REACHED PARMINDER OF [facility] IF THEY CAN FACILITATE, NO ANSWER AT THIS TIME. PATIENT REMAINS MEDICALY STABLE.
--- NOTE | 2021-10-23 19:00 | NUR ---
TESTER COMPRESSED GASES CLOSING NOTE PATIENT ON BED AWAKE. PATIENT IS A/O X4. ON O2 AT 3LPM VIA NASAL CANNULA SATURATING WELL. NO SIGN SOB/DISTRESS RESPIRATORY DISTRESS. WITH IV ACCESS AT THE RIGHT UPPER ARM MIDLINE, SALINE LOCK, PATENT AND INTACT. WITH LEFT UPPER CHESTWALL HD CATH COVERED WITH TEGADERM, WITH INTACT AND DRY. SAFETY MEASURES IN PLACED. CALL LIGHT WITHIN REACH. BED ON LOWEST LOCKED POSITION, SIDE RAILS UP X2. PATIENT IN STABLE CONDITION. STILL AWAITING RESPONSE FROM DR. FLOYD REGARDING HD POST CT WITH CONTRAST. ENDORSED PATIENT TO NEXT SHIFT FOR CONTINUITY OF CARE.
--- NOTE | 2021-10-23 19:45 | NUR ---
RN OPENING NOTE PATIENT AWAKE IN BED. A/OX4. NO S/S OF DISTRESS, BREATHING W/O DIFFICULTY ON 3L NC. CHAI MIDLINE SL INTACT AND PATENT. SAFETY MEASURES IN PLACE: BED LOCKED, AT LOWEST LEVEL, RAILS UP X2, CALL [place] WITHIN REACH. WILL CONTINUE TO MONITOR PATIENT.
[2021-10-23] MEDS: ACETAMINOPHEN 325 MG TABLET PO PRN (19:55)
[2021-10-23 20:00] VITALS: BP 100/38
[2021-10-23] MEDS: ATORVASTATIN 40 MG TABLET PO SCH (21:40)
[2021-10-23] MEDS: SIMVASTATIN 20 MG TABLET PO SCH (21:41)
[2021-10-23] MEDS: INSULIN GLARGINE, 100 UNIT/ML CARTRIDGE SQ SCH (21:56)
[2021-10-23] MEDS: *INSULIN REGULAR(HUMULIN R)HUM 100 UNIT/ML VIAL SQ PRN (21:58)
--- NOTE | 2021-10-23 22:30 | NUR ---
RN NOTE PATIENT STATED SHE HAD CHEST PAIN. DR. TOBIN CONTACTED. BP WAS CHECKED AT 1999, AND WAS 100/38. A RECHECK BY HAND WAS 100/40. EKG WAS ORDER BY DR. TOBIN AND PERFORMED - NORMAL SR. COMPARING TO PREVIOUS EKGs, PATIENT IS STILL AT BASELINE. PATIENT STABLE FOR NOW; WILL CONTINUE TO MONITOR.
[2021-10-24] MEDS: hydrALAZINE HCL 25 MG TABLET PO SCH ×3 (05:00→21:36)
[2021-10-24] MEDS: METOPROLOL TARTRATE 25 MG TABLET PO SCH ×4 (05:38→16:32)
[2021-10-24] MEDS: PIPERACILLIN /TAZOBACTAM 2.25 G in IV D5W 50 ML IV SCH ×3 (05:40→20:53)
[2021-10-24 06:37] LABS: BASOPHILS % (AUTO) 0.1 % (0.0-2.0); EOSINOPHILS % (AUTO) 3.8 % (0.0-6.0); HEMATOCRIT 24 % (33-45); HEMOGLOBIN 7.6 g/dL (11.5-14.8); LYMPHOCYTES % (AUTO) 25.9 % (20.0-44.0); MEAN CORPUSCULAR HGB CONC 32 g/dl (31.0-36.0); MEAN CORPUSCULAR VOLUME 90 fL (82-100); MONOCYTES % (AUTO) 8.6 % (2.0-12.0); NEUTROPHILS # (AUTO) 7.2 K/uL (1.8-8.9); NEUTROPHILS % (AUTO) 61.6 % (43.0-81.0); PLATELET COUNT (AUTO) 516 K/uL (150-450); WHITE BLOOD COUNT (AUTO) 11.7 K/uL (4.3-11.0)
[2021-10-24] MEDS: DEXTROSE 50%-WATER 50 ML DISP.SYRIN IV PRN (06:49)
[2021-10-24 07:00] LABS: ALBUMIN 2.2 g/dL (3.4-5.0); BILIRUBIN,DIRECT 0.1 mg/dL (0.0-0.2); BILIRUBIN,TOTAL 0.4 mg/dL (0.2-1.0); CALCIUM, SERUM 8.7 mg/dL (8.5-10.1); CREATININE 4.7 mg/dL (0.6-1.3); MAGNESIUM 1.9 mg/dL (1.8-2.4); PHOSPHORUS 3.3 mg/dL (2.5-4.9); POTASSIUM 4.2 mmol/L (3.5-5.1); TOTAL PROTEIN, SERUM 6.1 g/dL (6.4-8.2)
[2021-10-24] MEDS: ALBUTEROL FS 2.5 MG/0.5 ML VIAL.NEB NEB SCH ×4 (07:35→19:30)
[2021-10-24] MEDS: IPRATROPIUM NEB FS 0.5 MG/2.5 ML AMPUL.NEB NEB SCH ×4 (07:35→19:30)
--- NOTE | 2021-10-24 07:42 | NUR ---
RN CLOSING NOTE PATIENT ASLEEP IN HER BED. A/OX4. NO S/S OF DISTRESS; BREATHING WELL ON 3L NC. CHAI MIDLINE SL INTACT AND PATENT. SAFETY MEASURES IN PLACE: BED LOCKED, AT LOWEST POSITION, RAILS UP X3, CALL [place] WITHIN REACH. REPORT WAS ENDORSED TO AND ACKNOWLEDGED BY RN, RICARDO, FOR JESUS.
[2021-10-24] MEDS: BLOOD SUGAR DIAGNOSTIC 1 EACH STRIP VI SCH ×4 (07:44→22:01)
[2021-10-24] MEDS: INSULIN REGULAR, HUMAN 100 UNIT/ML 3 ML VIAL SQ PRN (07:45)
[2021-10-24 08:00] VITALS: BP 126/60
[2021-10-24] MEDS: LINAGLIPTIN 5 MG TABLET PO SCH (09:00)
[2021-10-24] MEDS: SEVELAMER CARBONATE 800 MG POWD.PACK PO SCH ×3 (09:37→18:46)
[2021-10-24] MEDS: PANTOPRAZOLE 40 MG TABLET.DR PO SCH (09:38)
[2021-10-24] MEDS: DOCUSATE SODIUM 100 MG CAPSULE PO SCH ×2 (09:38→18:45)
[2021-10-24] MEDS: FERROUS SULFATE (325 MG) 325 MG/TAB TABLET PO SCH (09:39)
[2021-10-24] MEDS: ASPIRIN EC 81 MG TABLET.DR PO SCH (09:39)
[2021-10-24] MEDS: AMLODIPINE BESYLATE 10 MG TABLET PO SCH ×2 (09:39→11:00)
[2021-10-24] MEDS: TICAGRELOR 90 MG TABLET PO SCH ×2 (09:41→18:45)
--- NOTE | 2021-10-24 13:00 | NUR ---
former sena midline clotted,new midline placed in rt. upper arm.
[2021-10-24] MEDS: ACETAMINOPHEN 325 MG TABLET PO PRN (13:11)
[2021-10-24] MEDS: MORPHINE SULFATE INJ 2 MG/ML DISP.SYRIN IV PRN ×2 (14:59→18:53)
[2021-10-24] MEDS ORDERED: IV NS 0.9% 250 ML IV ONE (15:55)
[2021-10-24] MEDS ORDERED: IOHEXOL-300 100 ML VIAL IV ONE (15:55)
[2021-10-24 16:00] VITALS: BP 103/54
--- NOTE | 2021-10-24 18:30 | NUR ---
had ct of abd.photo of report sent to dr. ceballos.med x 2 for painx1 with tylenol,x1 with morphine.states pain in rt. leg.npo except for meds to give bowel a rest.
--- NOTE | 2021-10-24 18:35 | NUR ---
dialyzed after ct scan.
--- NOTE | 2021-10-24 19:03 | NUR ---
just medicated again with morphine.
--- NOTE | 2021-10-24 19:30 | NUR ---
MS RN OPENING NOTE RECEIVED PATIENT IN BED. A/OX3-4. NO S/S OF APPARENT DISTRESS ON 2LPM OF O2 VIA NC. PATIENT RECEIVED MEDICATION FOR PAIN NOT SO LONG AGO-- 01/06 PAIN AT THIS TIME. PATIENT REMINDED THAT SHE IS NPO EXCEPT MEDICATION-- PATIENT ACKNOWLEDGED. COLOSTOMY NOTED TO BE INTACT WITH MINIMAL BM-- NOTED TO BE FORMED AND BROWN. NO FLUIDS RUNNING. RE-ORIENTED AND ENCOURAGED WITH THE USE OF CALL LIGHT. WILL CONTINUE WITH PATIENT'S PLAN OF CARE.
[2021-10-24 20:00] VITALS: BP 154/54
--- NOTE | 2021-10-24 20:00 | NUR ---
MS RN NOTE WAS NOT ABLE TO GIVE HEPARIN LOCK FLUSH POST HD. MEDICATION NOT AVAILABLE.
--- NOTE | 2021-10-24 20:09 | NUR ---
RT NOTE PATIENT REFUSING TX AT THIS TIME. NO RESPIRATORY DISTRESS NOTED AT THIS TIME. PRIMARY NURSE AWARE.
[2021-10-24] MEDS: ATORVASTATIN 40 MG TABLET PO SCH (21:37)
[2021-10-24] MEDS: SIMVASTATIN 20 MG TABLET PO SCH (21:37)
[2021-10-24] MEDS: INSULIN GLARGINE, 100 UNIT/ML CARTRIDGE SQ SCH (22:00)
[2021-10-25] MEDS: MORPHINE SULFATE INJ 2 MG/ML DISP.SYRIN IV PRN ×5 (00:53→19:26)
[2021-10-25] MEDS: METOPROLOL TARTRATE 25 MG TABLET PO SCH ×5 (00:55→17:04)
[2021-10-25] MEDS: hydrALAZINE HCL 25 MG TABLET PO SCH ×3 (05:02→21:08)
[2021-10-25] MEDS: PIPERACILLIN /TAZOBACTAM 2.25 G in IV D5W 50 ML IV SCH ×3 (05:03→21:07)
[2021-10-25 06:39] LABS: BASOPHILS # (AUTO) 0.1 K/uL (0.0-0.2); BASOPHILS % (AUTO) 0.9 % (0.0-2.0); EOSINOPHILS % (AUTO) 6.6 % (0.0-6.0); HEMATOCRIT 23 % (33-45); HEMOGLOBIN 7.6 g/dL (11.5-14.8); LYMPHOCYTES # (AUTO) 1.9 K/uL (0.8-4.8); LYMPHOCYTES % (AUTO) 22.9 % (20.0-44.0); MEAN CORPUSCULAR HGB CONC 33 g/dl (31.0-36.0); MEAN CORPUSCULAR VOLUME 91 fL (82-100); MONOCYTES # (AUTO) 0.9 K/uL (0.1-1.30); MONOCYTES % (AUTO) 11.4 % (2.0-12.0); NEUTROPHILS # (AUTO) 4.8 K/uL (1.8-8.9); NEUTROPHILS % (AUTO) 58.2 % (43.0-81.0); PLATELET COUNT (AUTO) 497 K/uL (150-450); RED BLOOD CELL COUNT(AUTO) 2.53 MIL/uL (4.0-5.2); WHITE BLOOD COUNT (AUTO) 8.2 K/uL (4.3-11.0)
[2021-10-25] MEDS: BLOOD SUGAR DIAGNOSTIC 1 EACH STRIP VI SCH ×4 (06:48→22:10)
[2021-10-25] MEDS: INSULIN REGULAR, HUMAN 100 UNIT/ML 3 ML VIAL SQ PRN ×2 (06:48→11:51)
--- NOTE | 2021-10-25 07:00 | NUR ---
MS MEEK OPENING NOTE PATIENT LAYING IN BED, A/O X 4, ABLE TO MAKE NEEDS KNOWN. TOLERATING WELL ON 2 LPM O2 VIA CANNULA WITH NO SOB OR S/S RESPIRATORY DISTRESS NOTED. NO COMPLAINTS OF PAIN OR DISCOMFORT AT THIS TIME. COLOSTOMY IN PLACE DRAINING BROWN, FORMED STOOL. SAFETY MEASURES IN PLACE: BED IN LOWEST LOCKED POSITION, SIDE RAILS UP X 2, CALL LIGHT WITHIN REACH. WILL CONTINUE TO MONITOR. Addendum: 10/25/21 at 1940 by CHARISSA RICKS RN CHAI MIDLINE IN PLACE CLEAN, INTACT, AND FLUSHING WELL.
--- NOTE | 2021-10-25 07:06 | NUR ---
MS RN CLOSING NEEDS ATTENDED. WILL GIVE REPORT TO MORNING SHIFT RN FOR CONTINUITY OF CARE.
[2021-10-25 07:09] LABS: CALCIUM, SERUM 8.6 mg/dL (8.5-10.1); MAGNESIUM 1.8 mg/dL (1.8-2.4); PHOSPHORUS 2.9 mg/dL (2.5-4.9)
[2021-10-25] MEDS: IPRATROPIUM NEB FS 0.5 MG/2.5 ML AMPUL.NEB NEB SCH ×4 (07:35→19:30)
[2021-10-25] MEDS: ALBUTEROL FS 2.5 MG/0.5 ML VIAL.NEB NEB SCH ×4 (07:35→19:30)
[2021-10-25] MEDS: SEVELAMER CARBONATE 800 MG POWD.PACK PO SCH ×3 (07:37→17:38)
[2021-10-25] MEDS: PANTOPRAZOLE 40 MG TABLET.DR PO SCH (07:38)
[2021-10-25 08:00] VITALS: BP 152/47
--- NOTE | 2021-10-25 08:33 | NUR ---
RT Pt refused breathing tx at this time. No SOB or respiratory distress noted.
[2021-10-25] MEDS: DOCUSATE SODIUM 100 MG CAPSULE PO SCH ×2 (08:36→16:52)
[2021-10-25] MEDS: LINAGLIPTIN 5 MG TABLET PO SCH (08:36)
[2021-10-25] MEDS: ASPIRIN EC 81 MG TABLET.DR PO SCH (08:36)
[2021-10-25] MEDS: AMLODIPINE BESYLATE 10 MG TABLET PO SCH (08:37)
[2021-10-25] MEDS: TICAGRELOR 90 MG TABLET PO SCH ×2 (08:37→16:52)
[2021-10-25] MEDS: FERROUS SULFATE (325 MG) 325 MG/TAB TABLET PO SCH (08:37)
--- NOTE | 2021-10-25 09:26 | NUR ---
MS RN NOTE PATIENT NOTED WITH 9/10 RIGHT KNEE PAIN AND REQUESTING MEDICATION. PRN MORPHINE 2 MG IVP ADMINISTERED ORDERED. WILL CONTINUE TO MONITOR FOR S/S OF PAIN.
--- NOTE | 2021-10-25 14:33 | NUR ---
MS RN NOTES PATIENT NOTED WITH 8/10 RIGHT KNEE PAIN AND REQUESTING MEDICATION. PRN MORPHINE 2 MG IVP ADMINISTERED ORDERED. WILL CONTINUE TO MONITOR FOR S/S OF PAIN.
[2021-10-25] MEDS ORDERED: EPOETIN ALFA-EPBX 10,000 UNIT/ML VIAL IV ONE (15:00)
--- NOTE | 2021-10-25 16:25 | NUR ---
RT Patient refused breathing tx. No SOB noted. HR 78 SPO2 99% on 2L nasal cannula.
--- NOTE | 2021-10-25 19:00 | NUR ---
MS RN CLOSING NOTES PATIENT LAYING IN BED, A/O X 4, ABLE TO MAKE NEEDS KNOWN. TOLERATING WELL ON 2 LPM O2 VIA CANNULA WITH NO SOB OR S/S RESPIRATORY DISTRESS. NO COMPLAINTS OF PAIN OR DISCOMFORT AT THIS TIME. COLOSTOMY IN PLACE DRAINING BROWN, FORMED STOOL. CHAI MIDLINE IN PLACE CLEAN, INTACT, AND FLUSHING WELL. SAFETY MEASURES IN PLACE: BED IN LOWEST LOCKED POSITION, SIDE RAILS UP X 2, CALL LIGHT WITHIN REACH. ALL NEEDS MET. WILL ENDORSE TO TAX AUDITOR FOR JESUS.
--- NOTE | 2021-10-25 19:49 | NUR ---
MS RN OPENING NOTE RECEIVED PATIENT IN BED. A/OX4. NO S/S OF APPARENT DISTRESS ON 2LPM OF O2 VIA NC. C/O 03/08 PAIN ON HER KNEE-- MEDICATION GIVEN. PATIENT REMINDED THAT SHE IS NPO STILL EXCEPT MEDICATION-- PATIENT ACKNOWLEDGED. COLOSTOMY NOTED TO BE INTACT. NO FLUIDS RUNNING. RE-ORIENTED AND ENCOURAGED WITH THE USE OF CALL LIGHT. WILL CONTINUE WITH PATIENT'S PLAN OF CARE.
[2021-10-25 20:00] VITALS: BP 139/57
[2021-10-25] MEDS: SIMVASTATIN 20 MG TABLET PO SCH (21:09)
[2021-10-25] MEDS: ATORVASTATIN 40 MG TABLET PO SCH (21:09)
[2021-10-25] MEDS: INSULIN GLARGINE, 100 UNIT/ML CARTRIDGE SQ SCH (22:00)
[2021-10-26] MEDS: METOPROLOL TARTRATE 25 MG TABLET PO SCH ×4 (00:28→17:15)
[2021-10-26] MEDS: MORPHINE SULFATE INJ 2 MG/ML DISP.SYRIN IV PRN ×4 (00:34→21:56)
[2021-10-26] MEDS: PIPERACILLIN /TAZOBACTAM 2.25 G in IV D5W 50 ML IV SCH ×2 (05:37→12:54)
[2021-10-26] MEDS: hydrALAZINE HCL 25 MG TABLET PO SCH ×3 (05:39→21:48)
--- NOTE | 2021-10-26 05:46 | NUR ---
MS RN NOTE- OMNICELL DISCREPANCY PULLED OUT ANOTHER APRESOLINE 25 MG AT THIS TIME SCHEDULED FOR 0500. OPENED TAB DROPPED BY PATIENT. DISCARDED OPENED TAB OF APRESOLINE ON PROPER DISPOSAL BIN.
[2021-10-26 06:40] LABS: BASOPHILS # (AUTO) 0.1 K/uL (0.0-0.2); BASOPHILS % (AUTO) 0.9 % (0.0-2.0); EOSINOPHILS % (AUTO) 6.1 % (0.0-6.0); HEMATOCRIT 23 % (33-45); HEMOGLOBIN 7.4 g/dL (11.5-14.8); LYMPHOCYTES # (AUTO) 3.1 K/uL (0.8-4.8); LYMPHOCYTES % (AUTO) 30.5 % (20.0-44.0); MEAN CORPUSCULAR HGB CONC 33 g/dl (31.0-36.0); MEAN CORPUSCULAR VOLUME 91 fL (82-100); MONOCYTES # (AUTO) 1.1 K/uL (0.1-1.30); MONOCYTES % (AUTO) 10.4 % (2.0-12.0); NEUTROPHILS # (AUTO) 5.3 K/uL (1.8-8.9); NEUTROPHILS % (AUTO) 52.1 % (43.0-81.0); PLATELET COUNT (AUTO) 522 K/uL (150-450); RED BLOOD CELL COUNT(AUTO) 2.53 MIL/uL (4.0-5.2); WHITE BLOOD COUNT (AUTO) 10.2 K/uL (4.3-11.0)
[2021-10-26 07:06] LABS: CALCIUM, SERUM 8.4 mg/dL (8.5-10.1); CREATININE 5.4 mg/dL (0.6-1.3); MAGNESIUM 1.8 mg/dL (1.8-2.4); PHOSPHORUS 3.3 mg/dL (2.5-4.9); POTASSIUM 5.2 mmol/L (3.5-5.1)
[2021-10-26 07:13] LABS: ALBUMIN 2.1 g/dL (3.4-5.0); BILIRUBIN,DIRECT 0.1 mg/dL (0.0-0.2); BILIRUBIN,TOTAL 0.3 mg/dL (0.2-1.0)
[2021-10-26] MEDS: BLOOD SUGAR DIAGNOSTIC 1 EACH STRIP VI SCH ×4 (07:17→21:48)
[2021-10-26] MEDS: INSULIN REGULAR, HUMAN 100 UNIT/ML 3 ML VIAL SQ PRN ×3 (07:17→16:56)
--- NOTE | 2021-10-26 07:30 | NUR ---
RN OPENING NOTES RECEIVED PATIENT IN BED, AWAKE, A/O X4, VERBALLY RESPONSIVE. NO SIGNS OF ACUTE DISTRESS NOTED. ON O2 @2LPM VIA N/C, NO SOB NOTED. BREATHING EVEN AND UNLABORED. NO C/O PAIN AT THIS TIME. WITH IV ACCESS ON CHAI MIDLINE #18G, INTACT AND PATENT, SALINE LOCKED. LEFT CHEST WALL HD CATH INTACT, WITH DRESSING C/D/I. SAFETY MEASURE IN PLACE. BED IN LOWEST AND LOCKED POSITION, SIDE RAILS UP X2, CALL LIGHT PLACED WITHIN EASY REACH. WILL CONTINUE TO MONITOR PATIENT.
[2021-10-26] MEDS: ALBUTEROL FS 2.5 MG/0.5 ML VIAL.NEB NEB SCH ×4 (07:35→19:30)
[2021-10-26] MEDS: IPRATROPIUM NEB FS 0.5 MG/2.5 ML AMPUL.NEB NEB SCH ×4 (07:35→19:30)
--- NOTE | 2021-10-26 07:58 | NUR ---
RESP TX DEFERRED PER PTS REQUEST. NO S/S OF SOB NOTED WILL CONT TO MONITOR Addendum: 10/26/21 at 0801 by YOSELYN SWENSON RT Amended: Links added.
[2021-10-26 08:00] VITALS: BP 120/48
[2021-10-26] MEDS: DOCUSATE SODIUM 100 MG CAPSULE PO SCH ×2 (08:44→17:14)
[2021-10-26] MEDS: LINAGLIPTIN 5 MG TABLET PO SCH (08:45)
[2021-10-26] MEDS: FERROUS SULFATE (325 MG) 325 MG/TAB TABLET PO SCH (08:45)
[2021-10-26] MEDS: SEVELAMER CARBONATE 800 MG POWD.PACK PO SCH ×3 (08:45→17:14)
[2021-10-26] MEDS: ASPIRIN EC 81 MG TABLET.DR PO SCH (08:48)
[2021-10-26] MEDS: TICAGRELOR 90 MG TABLET PO SCH ×2 (08:49→17:14)
[2021-10-26] MEDS: PANTOPRAZOLE 40 MG TABLET.DR PO SCH (08:56)
[2021-10-26] MEDS: AMLODIPINE BESYLATE 10 MG TABLET PO SCH (08:57)
--- NOTE | 2021-10-26 08:57 | NUR ---
RN NOTES BP MEDS WITHHELD, PATIENT FOR DIALYSIS.
--- NOTE | 2021-10-26 12:23 | NUR ---
RN NOTES BP MEDS WITHHELD, PATIENT FOR DIALYSIS TODAY.
--- NOTE | 2021-10-26 12:30 | NUR ---
RN NOTES HEMODIALYSIS STARTED BY GAVIOTA ZURITA.
--- NOTE | 2021-10-26 15:30 | NUR ---
RN NOTES HEMODIALYSIS DONE, PATIENT TOLERATED PROCEDURE WELL.
[2021-10-26 16:00] VITALS: BP 148/60
--- NOTE | 2021-10-26 18:53 | NUR ---
RN CLOSING NOTES PATIENT RESTING IN BED, EASILY AROUSED. A/O X4. VERBALLY RESPONSIVE. NO SIGNS OF ACUTE DISTRESS NOTED. REMAINS ON O2 @2LPM VIA N/C, NO SOB NOTED. BREATHING EVEN AND UNLABORED. IV ACCESS ON CHAI MIDLINE #18G, INTACT AND PATENT, SALINE LOCKED. LEFT CHEST WALL HD CATH INTACT, WITH DRESSING C/D/I. . ALL DUE MEDS GIVEN, MEDICATED FOR PAIN NEEDED. SAFETY MEASURE IN PLACE. BED IN LOWEST AND LOCKED POSITION, SIDE RAILS UP X2, CALL LIGHT PLACED WITHIN EASY REACH. WILL ENDORSE TO NEXT SHIFT FOR CONTINUITY OF CARE.
--- NOTE | 2021-10-26 19:45 | NUR ---
RN OPENING NOTE PATIENT ASLEEP IN BED. A/OX4. NO S/S OF DISTRESS, BREATHING W/O DIFFICULTY ON ROOM AIR. CHAI MIDLINE SL INTACT AND PATENT. SAFETY MEASURES IN PLACE: BED AT LOWEST POSITION, LOCKED, RAILS UP X3, CALL [place] WITHIN REACH. WILL CONTINUE TO MONITOR PATIENT. Addendum: 10/26/21 at 1950 by GHADA HARRINGTON RN CORRECTION: BREATHING ON 2L NC W/O DIFFICULTY
[2021-10-26 20:00] VITALS: BP_SYST 115; BP_DIAS 41; BP_DIAS 64
--- NOTE | 2021-10-26 21:45 | NUR ---
RN NOTE CONTACTED DR. TOBIN, ON-CALL MD, REGARDING SIMVASTATIN AND ATORVASTATIN ORDERS. D/C'd SIMVASTATIN AND ORDERED TO CONTINUE W/ ATORVASTATIN. PATIENT STABLE; WILL CONTINUE TO MONITOR PATIENT.
[2021-10-26] MEDS: METRONIDAZOLE 500 MG TABLET PO SCH (21:47)
[2021-10-26] MEDS: ATORVASTATIN 40 MG TABLET PO SCH (21:48)
[2021-10-26] MEDS: INSULIN GLARGINE, 100 UNIT/ML CARTRIDGE SQ SCH (21:53)
[2021-10-26] MEDS: *INSULIN REGULAR(HUMULIN R)HUM 100 UNIT/ML VIAL SQ PRN (21:54)
[2021-10-27] MEDS: METOPROLOL TARTRATE 25 MG TABLET PO SCH ×4 (00:12→17:05)
[2021-10-27] MEDS: MORPHINE SULFATE INJ 2 MG/ML DISP.SYRIN IV PRN ×4 (04:15→21:58)
[2021-10-27] MEDS: hydrALAZINE HCL 25 MG TABLET PO SCH ×3 (04:15→21:30)
[2021-10-27] MEDS: METRONIDAZOLE 500 MG TABLET PO SCH ×3 (04:15→21:28)
[2021-10-27] MEDS: INSULIN REGULAR, HUMAN 100 UNIT/ML 3 ML VIAL SQ PRN ×3 (06:36→18:04)
[2021-10-27] MEDS: BLOOD SUGAR DIAGNOSTIC 1 EACH STRIP VI SCH ×4 (06:36→21:36)
[2021-10-27 06:56] LABS: CALCIUM, SERUM 8.6 mg/dL (8.5-10.1); CREATININE 4.1 mg/dL (0.6-1.3); MAGNESIUM 1.9 mg/dL (1.8-2.4); PHOSPHORUS 3.5 mg/dL (2.5-4.9); POTASSIUM 4.8 mmol/L (3.5-5.1)
--- NOTE | 2021-10-27 07:25 | NUR ---
RN OPENING NOTES PATIENT AWAKE IN BED. A/OX4. ON 2L OF O2 VIA NC WITH NO SOB NOTED. CHAI MIDLINE SL INTACT AND PATENT; LCW HD CATH. SAFETY MEASURES IN PLACE: BED LOCKED, AT LOWEST POSITION, RAILS UP X3, CALL [place] WITHIN REACH. WILL CONTINUE TO MONITOR
[2021-10-27] MEDS: ALBUTEROL FS 2.5 MG/0.5 ML VIAL.NEB NEB SCH ×4 (07:35→20:16)
[2021-10-27] MEDS: IPRATROPIUM NEB FS 0.5 MG/2.5 ML AMPUL.NEB NEB SCH ×4 (07:35→20:16)
[2021-10-27 07:43] LABS: BASOPHILS # (AUTO) 0.2 K/uL (0.0-0.2); BASOPHILS % (AUTO) 1.8 % (0.0-2.0); HEMATOCRIT 24 % (33-45); HEMOGLOBIN 7.6 g/dL (11.5-14.8); LYMPHOCYTES # (AUTO) 2.5 K/uL (0.8-4.8); LYMPHOCYTES % (AUTO) 27.9 % (20.0-44.0); MEAN CORPUSCULAR HGB CONC 32 g/dl (31.0-36.0); MEAN CORPUSCULAR VOLUME 89 fL (82-100); MONOCYTES # (AUTO) 0.6 K/uL (0.1-1.30); NEUTROPHILS # (AUTO) 5.2 K/uL (1.8-8.9); NEUTROPHILS % (AUTO) 58.3 % (43.0-81.0); PLATELET COUNT (AUTO) 526 K/uL (150-450); RED BLOOD CELL COUNT(AUTO) 2.65 MIL/uL (4.0-5.2)
--- NOTE | 2021-10-27 07:43 | NUR ---
RN CLOSING NOTE PATIENT AWAKE IN BED. A/OX4. NO S/S OF DISTRESS, BREATHING W/O DIFFICULTY ON 2L NC. CHAI MIDLINE SL INTACT AND PATENT; LCW HD CATH. SAFETY MEASURES IN PLACE: BED LOCKED, AT LOWEST POSITION, RAILS UP X3, CALL [place] WITHIN REACH. REPORT ENDORSED TO AND ACKNOWLEDGED BY ANN-MARIE DAY SHIFT RN, FOR JESUS.
[2021-10-27 08:00] VITALS: BP 151/63
[2021-10-27] MEDS: DOCUSATE SODIUM 100 MG CAPSULE PO SCH ×2 (09:33→17:05)
[2021-10-27] MEDS: AMLODIPINE BESYLATE 10 MG TABLET PO SCH (09:33)
[2021-10-27] MEDS: FERROUS SULFATE (325 MG) 325 MG/TAB TABLET PO SCH (09:34)
[2021-10-27] MEDS: ASPIRIN EC 81 MG TABLET.DR PO SCH (09:34)
[2021-10-27] MEDS: LINAGLIPTIN 5 MG TABLET PO SCH (09:34)
[2021-10-27] MEDS: PANTOPRAZOLE 40 MG TABLET.DR PO SCH (09:34)
[2021-10-27] MEDS: TICAGRELOR 90 MG TABLET PO SCH ×2 (09:52→17:21)
[2021-10-27] MEDS: SEVELAMER CARBONATE 800 MG TABLET PO SCH ×3 (09:53→17:05)
--- NOTE | 2021-10-27 11:45 | NUR ---
RN NOTES PATIENT STARTING HD.
--- NOTE | 2021-10-27 12:20 | NUR ---
RN NOTES WAS NOTIFIED BY HD NURSE THAT PATIENT HAD DECREASE IN BP. HD WAS STOPPED. PATIENT COMPLAINT OF CHEST PAIN "6"/10 AND FEELING "DIZZY". SOME ANXIOUSNESS NOTED. MANUAL BP 138/40 AFTER DISCONTINUATION OF HD. WILL CONTINUE TO MONITOR PATIENT AND INTERVENE ACCORDINGLY
--- NOTE | 2021-10-27 13:02 | NUR ---
RN NOTES PATIENT COMPLAINT OF CHEST PAIN HAS DECREASED TO 4/10. NO COMPLAINT OF DIZZINESS OR HEADACHE. CURRENT BP IS 161/76 WITH HR OF 83.
[2021-10-27 16:00] VITALS: BP 139/54
--- NOTE | 2021-10-27 19:05 | NUR ---
RN NOTES PATIENT IS IN ROOM WITH SON AT BEDSIDE. NO COMPLAINT OF PAIN AT THIS TIME. NO SOB NOTED ON RA. PLAN TO DISCHARGE PATIENT ONCE CLEARED WITH NEPHRO. SAFETY MEASURES IN PLACE. WILL ENDORSE TO CHECKER/STOCKER NURSE FOR JESUS
--- NOTE | 2021-10-27 19:55 | NUR ---
RN OPENING NOTES PATIENT RECEIVED IN AAOX4. ON 2L OF O2 VIA NC YOBANY WELL NO SOB/DISTRESS NOTED. CHAI MIDLINE SL INTACT AND PATENT; LCW HD CATH. SAFETY MEASURES IN PLACE: BED LOCKED, AT LOWEST POSITION, RAILS UP X3, CALL [place] WITHIN REACH. WILL CONTINUE TO MONITOR
[2021-10-27 20:00] VITALS: BP 158/68
[2021-10-27] MEDS: ATORVASTATIN 40 MG TABLET PO SCH (21:28)
[2021-10-27] MEDS: INSULIN GLARGINE, 100 UNIT/ML CARTRIDGE SQ SCH (21:38)
--- NOTE | 2021-10-27 22:22 | NUR ---
RN NOTES PT COMPLAINED OF PAIN 9/10 L KNEE.PRN MORPHINE 2MG GIVEN EFFECTIVE.
[2021-10-28] MEDS: METOPROLOL TARTRATE 25 MG TABLET PO SCH ×3 (00:51→12:00)
[2021-10-28] MEDS: hydrALAZINE HCL 25 MG TABLET PO SCH ×2 (04:35→13:29)
[2021-10-28] MEDS: METRONIDAZOLE 500 MG TABLET PO SCH ×2 (04:35→13:29)
[2021-10-28] MEDS: MORPHINE SULFATE INJ 2 MG/ML DISP.SYRIN IV PRN ×3 (05:31→15:42)
--- NOTE | 2021-10-28 05:35 | NUR ---
RN NOTES PT COMPLAINED OF PAIN 9/10 L KNEE.PRN MORPHINE 2MG GIVEN NO A/R NOTED.EFFECTIVE.
[2021-10-28] MEDS: BLOOD SUGAR DIAGNOSTIC 1 EACH STRIP VI SCH ×2 (05:36→11:34)
--- NOTE | 2021-10-28 07:29 | NUR ---
MS RN OPENING NOTE RECEIVED PT IN BED AWAKE. A/O X4, ABLE TO MAKE NEEDS KNOWN. ON RA, TOLERATING WELL. BREATHING EVEN AND UNLABORED. NOT IN ANY SIGN OF DISTRESS. PT WITH COLOSTOMY IN PLACE AND INTACT. IV ACCESS IN CHAI MIDLINE G #18, INTACT AND PATENT. LEFT CHEST WALL HD CATH, INTACT. SAFETY MEASURES IN PLACE: BED IN LOWEST AND LOCKED POSITION, SIDE RAILS UP X2, BED ALARM ON, CALL LIGHT WITHIN REACH. WILL CONTINUE TO MONITOR PT.
[2021-10-28] MEDS: IPRATROPIUM NEB FS 0.5 MG/2.5 ML AMPUL.NEB NEB SCH ×3 (07:35→15:30)
[2021-10-28] MEDS: ALBUTEROL FS 2.5 MG/0.5 ML VIAL.NEB NEB SCH ×3 (07:35→15:30)
--- NOTE | 2021-10-28 07:56 | NUR ---
RT Patient refused breathing tx. No SOB noted. HR 75 SPO2 95% on 1L nasal cannula
[2021-10-28 08:00] VITALS: BP 125/52
[2021-10-28] MEDS: PANTOPRAZOLE 40 MG TABLET.DR PO SCH ×2 (08:28→08:37)
[2021-10-28] MEDS: FERROUS SULFATE (325 MG) 325 MG/TAB TABLET PO SCH (08:37)
[2021-10-28] MEDS: ASPIRIN EC 81 MG TABLET.DR PO SCH (08:37)
[2021-10-28] MEDS: LINAGLIPTIN 5 MG TABLET PO SCH (08:38)
[2021-10-28] MEDS: DOCUSATE SODIUM 100 MG CAPSULE PO SCH (08:38)
[2021-10-28] MEDS: SEVELAMER CARBONATE 800 MG TABLET PO SCH ×2 (08:38→13:29)
[2021-10-28] MEDS: TICAGRELOR 90 MG TABLET PO SCH (08:41)
[2021-10-28] MEDS: AMLODIPINE BESYLATE 10 MG TABLET PO SCH (08:42)
--- NOTE | 2021-10-28 08:43 | NUR ---
RN NOTE AMLOPIDINE DUE AT 0900 NOT ADMINISTERED. PER DIALYSIS NURSE TO HOLD, PT WILL HAVE DIALYSIS TODAY.
[2021-10-28] MEDS: INSULIN REGULAR, HUMAN 100 UNIT/ML 3 ML VIAL SQ PRN (11:35)
--- NOTE | 2021-10-28 11:50 | NUR ---
RT Patient on dialysis and asleep. Breathing tx not given at this time. No SOB or respiratory distress noted.
--- NOTE | 2021-10-28 12:05 | NUR ---
RN NOTE LOPRESSOR DUE AT 1200 NOT ADMINISTERED. PT IS CURRENTLY ON ONGOING DIALYSIS.
--- NOTE | 2021-10-28 15:38 | NUR ---
RT Patient refused breathing tx. No SOB noted. HR 84 SPO2 95% on 1L nasal cannula
[2021-10-28 16:00] VITALS: BP 123/54
--- NOTE | 2021-10-28 17:30 | NUR ---
COB SAWYER NOTES PT DISCHARGED TO [facility] IN STABLE CONDITION. REPORT GIVEN TO GAVIOTA CHACON. PT IS A/O X4, ABLE TO MAKE NEEDS KNOWN. ON O2 AT 2 LITERS/MIN, TOLERATING WELL WITH SPO2 AT 95%. BREATHING EVEN AND UNLABORED. NOT IN ANY SIGN OF RESPIRATORY DISTRESS. V/S TAKEN, STABLE, AND RECORDED. BODY ASSESSMENT DONE AND PICTURES TAKEN AND PLACED IN THE CHART. ALL BELONGINGS ACCOUNTED FOR. ALL DISCHARGED INSTRUCTIONS AND HEALTH TEACHINGS PROVIDED TO THE PT AND PT VERBALIZED UNDERSTANDING AND SIGNED DISCHARGED DOCUMENTS. IV ACCESS ON RIGHT UPPER ARM MIDLINE REMOVED WITH NO ACTIVE BLEEDING NOTED. DRY PRESSURE DRESSING APPLIED AT SITE. LEFT CHEST WALL HD CATH INTACT. PT LEFT THE UNIT VIA GURNEY AT 1720, ACCOMPANIED BY 2 TAIL PULLER. MD AND CHARGED NURSE AWARE OF DISCHARGED.
== END 2021-10-28 17:20 | DRG 246 ==
LOC: ER 19:03 → TELE1 21:54 → TELE 10-18 08:39 → ICU 10-19 14:59 → TELE 10-20 18:25 → MED 10-22 10:07
PROVIDERS: ADMIT Registered Nurse; ATTEND Nurse Practitioner Acute Care
PROC: 05H533Z Insertion of Infusion Device into Right Subclavian Vein, Percutaneous Approach (ICD-10-PCS; 2021-10-13)
PROC: B546ZZA Ultrasonography of Right Subclavian Vein, Guidance (ICD-10-PCS; 2021-10-13)
PROC: 30233N1 Transfusion of Nonautologous Red Blood Cells into Peripheral Vein, Percutaneous Approach (ICD-10-PCS; 2021-10-13)
PROC: 5A1D70Z Performance of Urinary Filtration, Intermittent, Less than 6 Hours Per Day (ICD-10-PCS; 2021-10-13)
PROC: 027034Z Dilation of Coronary Artery, One Artery with Drug-eluting Intraluminal Device, Percutaneous Approach (ICD-10-PCS; principal; 2021-10-19)
PROC: 4A023N7 Measurement of Cardiac Sampling and Pressure, Left Heart, Percutaneous Approach (ICD-10-PCS; 2021-10-19)
PROC: B211YZZ Fluoroscopy of Multiple Coronary Arteries using Other Contrast (ICD-10-PCS; 2021-10-19)
PROC: B41JYZZ Fluoroscopy of Other Lower Arteries using Other Contrast (ICD-10-PCS; 2021-10-19)
PROC: 05H533Z Insertion of Infusion Device into Right Subclavian Vein, Percutaneous Approach (ICD-10-PCS; 2021-10-24)
PROC: B546ZZA Ultrasonography of Right Subclavian Vein, Guidance (ICD-10-PCS; 2021-10-24)
DX: I25.110 Atherosclerotic heart disease of native coronary artery with unstable angina pectoris (principal); N18.6 End stage renal disease; J96.01 Acute respiratory failure with hypoxia; J96.21 Acute and chronic respiratory failure with hypoxia; I50.33 Acute on chronic diastolic (congestive) heart failure; I13.2 Hypertensive heart and chronic kidney disease with heart failure and with stage 5 chronic kidney disease, or end stage renal disease; J44.1 Chronic obstructive pulmonary disease with (acute) exacerbation; E78.5 Hyperlipidemia, unspecified; E87.5 Hyperkalemia; G47.33 Obstructive sleep apnea (adult) (pediatric); Z87.01 Personal history of pneumonia (recurrent); D63.1 Anemia in chronic kidney disease; E66.01 Morbid (severe) obesity due to excess calories; Z68.30 Body mass index [BMI] 30.0-30.9, adult; E11.22 Type 2 diabetes mellitus with diabetic chronic kidney disease; E66.9 Obesity, unspecified; E11.65 Type 2 diabetes mellitus with hyperglycemia; K52.9 Noninfective gastroenteritis and colitis, unspecified; Z87.891 Personal history of nicotine dependence; Z93.3 Colostomy status; Z99.2 Dependence on renal dialysis; E11.51 Type 2 diabetes mellitus with diabetic peripheral angiopathy without gangrene
CPT/HCPCS: 36410; 36415; 71045-TC; 71250-TC; 74018; 75574; 80048-TC; 80053-TC; 80076-TC; 80202-TC; 82728-TC; 82947-TC; 82962-TC; 83540-TC; 83690-TC; 83735-TC; 83880; 84100-TC; 84439-TC; 84443-TC; 84484-TC; 85025-TC; 85347; 85610-TC; 86706; 86850-TC; 87040-TC; 87070-TC; 87081-TC; 87340; 90935-TC; 93307-TC; 94799-TC; A4217; C1725; C1769; C1887; C1894; C9601; C9803; G0378; G0500; J0360; J0885; J1642; J1644; J1815; J1940; J2250; J2270; J2405; J2543; J2916; J2920; J2997; J3010; J3370; J3490; J7030; J7040; J7050; J7060; J7070; P9016; Q9967

== ENCOUNTER 2022-05-18 13:09 | Inpatient (IN) | payer MEDICARE, OTHER ==
[~2022-05-18] VITALS: Ht 154.9 cm; Wt 71.2 kg
[~2022-05-18 13:09] MED LIST: ACET-2605 PO; AMIN30LI2 PO; AMLO-213 PO; ASCO-352 PO; ASPI-1420 PO; ATOR40TA PO; CALC1TAB30 PO; CRAN3875 PO; CRAN425C6 PO; DICL100G34 TP; DOCU-141 PO; FERR325T23 PO; FLUC100T PO; FOLI0.8T2 PO; GLUC1KIT IM; HEPA50007 SQ; HYDR-4076 PO; HYDR-4303 PO; HYDR4TAB57 PO; INSU100I45 SQ; INSU100V42 SQ; INSU100V7 SQ; LACT1CAP71 PO; LINA5TAB PO; MAGN400O6 PO; MELA5TAB PO; METO25TA20 PO; MULT-447 PO; NALO0.4D4 IV; NITR0.4T48 SL; ONDA4TAB5 PO; PANT40TA2 PO; PRED2.5T PO; SEVE0.8P3 PO; ZINC50TA69 PO
[2022-05-18] MEDS ORDERED: CT SWABBABLE VALVE TRANS SET 1 EA INFUS.SET MC ONE (17:22)
[2022-05-18] MEDS ORDERED: IOHEXOL-350 100 ML VIAL IV ONE (17:22)
[2022-05-18] MEDS ORDERED: IV NS 0.9% 250 ML IV ONE (17:22)
[2022-05-18] MEDS ORDERED: NITROGLYCERIN 4.9 GM SPRAY ONE (17:55)
[2022-05-18] MEDS ORDERED: ACETAMINOPHEN 325 MG TABLET PO PRN (18:00)
[2022-05-18] MEDS ORDERED: *INSULIN REGULAR(HUMULIN R)HUM 100 UNIT/ML VIAL SQ PRN (18:00)
[2022-05-18] MEDS ORDERED: ACETAMINOPHEN ES 500 MG TABLET PO PRN (18:00)
[2022-05-18] MEDS ORDERED: DEXTROSE 50%-WATER 50 ML DISP.SYRIN IV PRN (18:00)
[2022-05-18] MEDS ORDERED: ONDANSETRON HCL/PF 4 MG/2 ML VIAL IVP PRN (18:00)
[2022-05-18] MEDS ORDERED: Z GUARD REMEDY 4 OZ OINT TP PRN (18:00)
[2022-05-18] MEDS: SEVELAMER CARBONATE 800 MG POWD.PACK PO SCH (18:42)
[2022-05-18 19:20] LABS: CALCIUM, SERUM 7.9 mg/dL (8.5-10.1); CREATININE 3.3 mg/dL (0.6-1.3); POTASSIUM 4.6 mmol/L (3.5-5.1)
--- NOTE | 2022-05-18 19:31 | NUR ---
RECEIVED PATIENT VIA GURNEY WITH ONGOING OXYGEN OF O2 AT 2LPM. NO SIGNS OF RESPIRATORY DISTRESS NOTED. PATIENT A/OX4 ABLE TO MAKE NEEDS KNOWN. WITH COLOSTOMY BAG DRY AND INTACT. WITH IV ACCESS INTACT AND FREE FROM BLEEDING. DUE MEDS GIVEN. ALL SAFETY PRECATIONS IMPLEMENTED. ENDORSED TO INCOMING NOD.
--- NOTE | 2022-05-18 19:37 | NUR ---
RN OPENING NOTES RECEIVED PT IN BED, AWAKE, WATCHING VIDEOS ON PHONE. AOx4, ABLE TO MAKE NEEDS KNOWN. ON NC 2LPM AND TOLERATING WELL. NO SOB NOTED. NO S/SX OF RESPIRATORY DISTRESS NOTED. TELE MONITOR DETECTS SINUS RHYTHM WITH RATE OF 70s. IV ACCESS IN L HAND #20 AND CHAI MIDLINE #18G. IV IS INTACT, PATENT, AND FLUSHING WELL. SAFETY PRECAUTIONS IN PLACE: BED IN LOWEST, LOCKED POSITION, SIDERAILS UPx2, AND BRAKES ON. TABLE AND CALL LIGHT WITHIN REACH. ALL NEEDS MET AT THIS TIME.
[2022-05-18 20:00] VITALS: BP 132/69
[2022-05-18 20:29] LABS: HEMOGLOBIN 8.4 g/dL (11.5-14.8)
[2022-05-18 20:39] LABS: BASOPHILS % (AUTO) 0.5 % (0.0-2.0); EOSINOPHILS % (AUTO) 0.9 % (0.0-6.0); HEMATOCRIT 27 % (33-45); LYMPHOCYTES # (AUTO) 1.5 K/uL (0.8-4.8); LYMPHOCYTES % (AUTO) 16.3 % (20.0-44.0); MEAN CORPUSCULAR HGB CONC 32 g/dl (31.0-36.0); MEAN CORPUSCULAR VOLUME 88 fL (82-100); MONOCYTES # (AUTO) 0.6 K/uL (0.1-1.30); MONOCYTES % (AUTO) 6.5 % (2.0-12.0); NEUTROPHILS # (AUTO) 6.8 K/uL (1.8-8.9); NEUTROPHILS % (AUTO) 75.8 % (43.0-81.0); PLATELET COUNT (AUTO) 361 K/uL (150-450); RED BLOOD CELL COUNT(AUTO) 3.03 MIL/uL (4.0-5.2)
[2022-05-18] MEDS: hydrALAZINE HCL 25 MG TABLET PO SCH (21:16)
[2022-05-18] MEDS: HEPARIN SODIUM, PORCINE 5000 UNITS/1 ML VIAL SQ SCH (21:35)
[2022-05-18] MEDS ORDERED: ATORVASTATIN 40 MG TABLET PO SCH (22:00)
[2022-05-18] MEDS: BLOOD SUGAR DIAGNOSTIC 1 EACH STRIP VI SCH (22:26)
[2022-05-19] VITALS: BP 137/54
[2022-05-19 04:00] VITALS: BP 141/60
[2022-05-19] MEDS: hydrALAZINE HCL 25 MG TABLET PO SCH ×2 (05:50→13:00)
[2022-05-19] MEDS: INSULIN REGULAR, HUMAN 100 UNIT/ML 3 ML VIAL SQ PRN ×2 (06:32→11:41)
[2022-05-19] MEDS: BLOOD SUGAR DIAGNOSTIC 1 EACH STRIP VI SCH ×3 (06:32→17:30)
--- NOTE | 2022-05-19 06:44 | NUR ---
RN CLOSING NOTES PT IN BED, ASLEEP, AWAKENS TO VERBAL STIMULI. AOx4, ABLE TO MAKE NEEDS KNOWN. ON NC 2LPM AND TOLERATING WELL. NO SOB NOTED. NO S/SX OF RESPIRATORY DISTRESS NOTED. TELE MONITOR DETECTS SINUS RHYTHM WITH RATE OF 80s. IV ACCESS IN L HAND #20 AND CHAI MIDLINE #18G. IV IS INTACT, PATENT, AND FLUSHING WELL. ALL ORDERS CARRIED OUT. ALL NEEDS MET. PT KEPT CLEAN AND DRY. SAFETY PRECAUTIONS IN PLACE: BED IN LOWEST, LOCKED POSITION, SIDERAILS UPx2, AND BRAKES ON. TABLE AND CALL LIGHT WITHIN REACH. WILL ENDORSE TO ONCOMING SHIFT FOR JESUS.
[2022-05-19] MEDS ORDERED: PANTOPRAZOLE 40 MG TABLET.DR PO SCH (07:30)
[2022-05-19] MEDS: INSULIN ASPART/LISPRO 100 UNIT/ML CARTRIDGE SQ SCH ×3 (07:30→17:30)
--- NOTE | 2022-05-19 07:40 | NUR ---
PROOFER OPENING NOTES RECEIVED PT IN BED, AWAKE,AOx4, ABLE TO MAKE NEEDS KNOWN. ON NC 2LPM AND TOLERATING WELL WITH NO SOB NOTED NOR ANY APPARENT S/SX OF RESPIRATORY DISTRESS NOTED. TELE MONITOR SHOWING SINUS RHYTHM WITH RATE OF 80 BPM. IV ACCESS IN L HAND #20 AND CHAI MIDLINE #18G AND LCW PERMACATH, IV ACCESSES ARE INTACT, PATENT, AND FLUSHING WELL. SAFETY PRECAUTIONS IN PLACE: BED IN LOWEST, LOCKED POSITION, SIDERAILS UPx2, AND BRAKES ON. TABLE AND CALL LIGHT WITHIN REACH. WILL CONTINUE TO MONITOR.
[2022-05-19 08:00] VITALS: BP 163/50
[2022-05-19 08:09] LABS: BASOPHILS # (AUTO) 0.1 K/uL (0.0-0.2); EOSINOPHILS % (AUTO) 3.5 % (0.0-6.0); HEMATOCRIT 27 % (33-45); HEMOGLOBIN 8.8 g/dL (11.5-14.8); LYMPHOCYTES # (AUTO) 2.3 K/uL (0.8-4.8); LYMPHOCYTES % (AUTO) 24.1 % (20.0-44.0); MEAN CORPUSCULAR HGB CONC 33 g/dl (31.0-36.0); MEAN CORPUSCULAR VOLUME 89 fL (82-100); MONOCYTES # (AUTO) 0.8 K/uL (0.1-1.30); MONOCYTES % (AUTO) 8.7 % (2.0-12.0); NEUTROPHILS % (AUTO) 62.7 % (43.0-81.0); PLATELET COUNT (AUTO) 382 K/uL (150-450); RED BLOOD CELL COUNT(AUTO) 3.03 MIL/uL (4.0-5.2); WHITE BLOOD COUNT (AUTO) 9.6 K/uL (4.3-11.0)
[2022-05-19] MEDS: SEVELAMER CARBONATE 800 MG POWD.PACK PO SCH ×3 (08:12→18:00)
[2022-05-19] MEDS ORDERED: CARV12.52 PO (08:13)
[2022-05-19] MEDS ORDERED: GABA-532 PO (08:13)
[2022-05-19] MEDS ORDERED: FOLI0.4T6 PO (08:13)
[2022-05-19] MEDS ORDERED: PANT40VI IV (08:13)
[2022-05-19] MEDS ORDERED: MONT10TA22 PO (08:13)
[2022-05-19] MEDS ORDERED: ALBU2.5V38 IH (08:13)
[2022-05-19] MEDS ORDERED: DIPH25CA51 PO (08:13)
[2022-05-19] MEDS ORDERED: GUAI5SYR PO (08:13)
[2022-05-19] MEDS ORDERED: HYDR200T4 PO (08:13)
[2022-05-19] MEDS ORDERED: ONDA4VIA52 IV (08:13)
[2022-05-19] MEDS ORDERED: MORP2VIA IV (08:13)
[2022-05-19] MEDS ORDERED: ACET-868 PO (08:13)
[2022-05-19] MEDS ORDERED: ALLA266C2 TP (08:13)
[2022-05-19 08:37] LABS: ALBUMIN 2.5 g/dL (3.4-5.0); BILIRUBIN,TOTAL 0.5 mg/dL (0.2-1.0); CALCIUM, SERUM 8.3 mg/dL (8.5-10.1); MAGNESIUM 2.2 mg/dL (1.8-2.4); PHOSPHORUS 4.9 mg/dL (2.5-4.9); POTASSIUM 4.9 mmol/L (3.5-5.1)
[2022-05-19] MEDS: METOPROLOL TARTRATE 50 MG TABLET PO SCH ×2 (08:54→17:00)
[2022-05-19] MEDS: HEPARIN SODIUM, PORCINE 5000 UNITS/1 ML VIAL SQ SCH (08:59)
[2022-05-19] MEDS ORDERED: ASPIRIN EC 81 MG TABLET.DR PO SCH (09:00)
[2022-05-19] MEDS ORDERED: FERROUS SULFATE (325 MG) 325 MG/TAB TABLET PO SCH (09:00)
[2022-05-19] MEDS ORDERED: AMLODIPINE BESYLATE 10 MG TABLET PO SCH (09:00)
[2022-05-19] MEDS ORDERED: LINAGLIPTIN 5 MG TABLET PO SCH (09:00)
[2022-05-19] MEDS: HYDROCODONE/APAP 5/325MG TABLET PO PRN ×2 (09:41→16:09)
--- NOTE | 2022-05-19 09:45 | NUR ---
WOUND CARE CONSULT: PT PRESENTS WITH RASH TO BUTTOCKS, GROIN FOLDS AND PERINEUM WITH MOISTURE ASSOCIATED OPEN SKIN TO GLUTEAL CREASE, SCARRING TO RT HEEL AND RT LOWER BUTTOCK, ALL PRESENT ON ADMISSION. RECOMMENDATIONS MADE FOR SKIN PROTECTION. DISCUSSED WITH NURSING STAFF. PT IS ON [facility] B[facility]. IN AGREEMENT WITH PLAN OF CARE. Addendum: 05/19/22 at 0946 by NOLBERTO TESFAYE [email or web address] Amended: Links added.
[2022-05-19] MEDS: CLOTRIMAZOLE 1% 15 GM TUBE TP SCH ×2 (11:25→18:14)
[2022-05-19 12:00] VITALS: BP 106/30
[2022-05-19] MEDS ORDERED: AZIT250T13 PO (13:47)
[2022-05-19] MEDS: NEPRO VAN 237 ML CAN PO SCH ×2 (15:30→17:00)
[2022-05-19 16:00] VITALS: BP 119/37
[2022-05-19 17:00] VITALS: BP 100/40
--- NOTE | 2022-05-19 18:30 | NUR ---
STRAIGHT CUTTER DISCHARGE NOTE PT DISCHARGED TO [facility] IN STABLE CONDITION, PT A/O X4, ABLE TO MAKE NEEDS KNOWN, ON 2LPM VIA NC NASAL CANNULA SATURATING AT 96%, WITHOUT ANY SOB NOTED, NOT IN ANY SIGNS OF RESPIRATORY DISTRESS, LAST TELE READING WAS SINUS RHYTHM AT 84 BPM, VITAL SIGNS TAKEN, STABLE AND RECORDED, PT REFUSED TO CHECK FOR SKIN CONDITION IT IS PAINFUL WHEN MOVED, NO REPORTS DISCOMFORT AT THIS TIME. COLOSTOMY BACK CHANGED, ALL BELONGINGS ACCOUNTED FOR AND FORM SIGNED BY HARSHAD HOPKINS, DISCHARGE INSTRUCTIONS GIVEN TO [facility], IV ACCESS IN LEFT HAND G#20 REMOVED WITH NO BLEEDING, DRY PRESSURE DRESSING APPLIED AT SITE, PT LEFT THE UNIT AT AROUND 1725 BY ADONAY AND 3 HEAD TRANSFER CLERK, ACCOMPANIED BY SON TO THE [facility] MD AND CHARGE NURSE AWARE OF DISCHARGE.
== END 2022-05-19 18:24 | DRG 280 ==
LOC: MED 15:47 → TELE 17:39
PROVIDERS: ADMIT Nurse Practitioner Acute Care; ATTEND Nurse Practitioner Acute Care
DX: I21.4 Non-ST elevation (NSTEMI) myocardial infarction (principal); I50.33 Acute on chronic diastolic (congestive) heart failure; N18.6 End stage renal disease; I13.2 Hypertensive heart and chronic kidney disease with heart failure and with stage 5 chronic kidney disease, or end stage renal disease; J98.11 Atelectasis; Z99.2 Dependence on renal dialysis; D63.8 Anemia in other chronic diseases classified elsewhere; I25.110 Atherosclerotic heart disease of native coronary artery with unstable angina pectoris; I25.2 Old myocardial infarction; J44.9 Chronic obstructive pulmonary disease, unspecified; K21.9 Gastro-esophageal reflux disease without esophagitis; M06.9 Rheumatoid arthritis, unspecified; Z87.01 Personal history of pneumonia (recurrent); Z95.5 Presence of coronary angioplasty implant and graft
CPT/HCPCS: 36415; 75574; 80048-TC; 80053-TC; 80061-TC; 82962-TC; 83735-TC; 84100-TC; 84484-TC; 85025-TC; 87081-TC; G0378; J1644; J1815; J7050; Q9967